=== PATIENT | male | born 1945 | race Caucasian/White ===

== ENCOUNTER 2016-08-23 22:07 | Observation (INO) | payer MEDICARE ==
[2016-08-23] MEDS ORDERED: SODIUM CHLORIDE 0.9% 1,000 ML IV STA (22:18)
[2016-08-23] MEDS ORDERED: ONDANSETRON 4 MG/2 ML VIAL IVP STA (22:18)
[2016-08-23] MEDS ORDERED: PANTOPRAZOLE 40 MG/10 ML VIAL IVP STA (22:18)
[2016-08-23] MEDS ORDERED: SODIUM CHLORIDE 0.9% 500 ML IV STA (22:18)
[2016-08-23 22:32] LABS: Basophils # (A) 0.1 k/uL (0-0.2); Basophils % (A) 1 %; CH 27.6; CHCM 33.9; Eosinophils # (A) 0.5 k/uL (0-0.7); Eosinophils % (A) 6 %; HCT 40.4 % (39.0-53.0); HDW 2.82; HGB 13.9 gm/dL (13.0-17.5); Luc # (Auto) 0.11; Luc % (Auto) 2; Lymphocytes % (A) 28 %; MCHC 34.4 g/dL (31.0-37.0); MCV 81.6 fL (80.0-100.0); Monocytes # (A) 0.4 k/uL (0-1.0); Monocytes % (A) 5 %; Neutrophils # (A) 4.1 k/uL (1.3-7.7); Neutrophils % (A) 58 %; RBC 4.95 m/uL (4.30-5.90); RDW 13.8 % (11.5-15.5); WBC 7.2 k/uL (3.8-10.6); WBC (Perox) 6.81
--- NOTE | 2016-08-23 22:34 | ED ---
General Adult HPI - General Chief complaint: GI Bleed Stated complaint: GI Bleed Time Seen by Provider: 08/23/16 22:15 Source: patient, family, RN notes reviewed, old records reviewed Mode of arrival: ambulatory - History of Present Illness Initial comments: This is a 71-year-old male to the ER for evaluation. Patient does present here for evaluation of GI bleeding, bright red blood. Blood in his stool for 2 days. This is of history of hemorrhoids does have pain in the back of his anus, is having sitting in a few bleeding related to his blood and no stool. No abdominal pain we does have history of diverticulosis, diverticulitis. No recent colonoscopy. Patient is not on blood thinners. - Related Data Home Medications Medication Instructions Recorded Confirmed Escitalopram [Lexapro] 10 mg PO DAILY 03/08/14 08/23/16 Omeprazole [Omeprazole] 20 mg PO DAILY 03/08/14 08/23/16 Ibuprofen [Advil] 400 mg PO Q8HR PRN 06/20/15 08/23/16 Pravastatin Sodium [Pravachol] 40 mg PO DAILY 06/20/15 08/23/16 Meclizine [Antivert] 12.5 mg PO DAILY 08/23/16 08/23/16 Allergies Allergy/AdvReac Type Severity Reaction Status Date / Time atorvastatin calcium Allergy PAIN IN Verified 08/23/16 22:31 [From Lipitor] MUSCLES cyclobenzaprine HCl Allergy "BLISTERS" Verified 08/23/16 22:31 [From Flexeril] Review of Systems ROS Statement: Those systems with pertinent positive or pertinent negative responses have been documented in the HPI. ROS Other: All systems not noted in ROS Statement are negative. 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 History of Any Multi-Drug Resistant Organisms: None Reported Past Surgical History: Appendectomy, Back Surgery, Cardiac Ablation, Cholecystectomy, Heart Catheterization, Hernia Repair, Joint Replacement, Orthopedic Surgery Additional Past Surgical History / Comment(s): LEFT LEG, SCREW REMOVAL-LEFT LEG , LEFT SHOULDER, CATARACTS -BOTH EYES, rt knee replaced Past Anesthesia/Blood Transfusion Reactions: Previous Problems w/ Anesthesia Additional Past Anesthesia/Blood Transfusion Reaction / Comment(s): STATES " I HAD SEVERE PERSONALITY CHANGES WITH THE PAST 2 SURGERIES, I WAS NOT NICE TO MY AT ALL" Past Psychological History: No Psychological Hx Reported Smoking Status: Former smoker Past Alcohol Use History: None Reported Past Drug Use History: None Reported - Past Family History Mother Family Medical History: No Reported History General Exam General appearance: alert, in no apparent distress Head exam: Present: atraumatic, normocephalic, normal inspection Eye exam: Present: normal appearance, PERRL, EOMI. Absent: scleral icterus, conjunctival injection, periorbital swelling ENT exam: Present: normal exam, mucous membranes moist Neck exam: Present: normal inspection. Absent: tenderness, meningismus, lymphadenopathy Respiratory exam: Present: normal lung sounds bilaterally. Absent: respiratory distress, wheezes, rales, rhonchi, stridor Cardiovascular Exam: Present: regular rate, normal rhythm, normal heart sounds. Absent: systolic murmur, diastolic murmur, rubs, gallop, clicks GI/Abdominal exam: Present: soft, normal bowel sounds. Absent: distended, tenderness, guarding, rebound, rigid Extremities exam: Present: normal inspection, full ROM, normal capillary refill. Absent: tenderness, pedal edema, joint swelling, calf tenderness Back exam: Present: normal inspection Neurological exam: Present: alert, oriented X3, CN II-XII intact Psychiatric exam: Present: normal affect, normal mood Skin exam: Present: warm, dry, intact, normal color. Absent: rash Course Vital Signs 08/23/16 22:14 Temperature 98.0 F Pulse Rate 66 Respiratory 18 Rate O2 Sat by Pulse 100 Oximetry - Reevaluation(s) Reevaluation #1: 08/23/16 23:33 Patient has no active bleeding here in the ER, no lightheadedness dizziness or weakness Medical Decision Making - Medical Decision Making 71 male to the ER for evaluation. Patient has a for evaluation J bleed prior of blood per rectum. Patient does follow with , patient with no active bleeding here in the emergency room, difficult digital exam is negative, no active hemorrhoids, hemoglobin is stable, patient will be admitted for observation - Lab Data Result diagrams: 08/23/16 22:15 08/23/16 22:15 Lab Results 08/23/16 08/23/16 08/23/16 Range/Units 22:15 22:15 22:15 WBC 7.2 (3.8-10.6) k/uL RBC 4.95 (4.30-5.90) m/uL Hgb 13.9 (13.0-17.5) gm/dL Hct 40.4 (39.0-53.0) % MCV 81.6 (80.0-100.0) fL MCH 28.0 (25.0-35.0) pg MCHC 34.4 (31.0-37.0) g/dL RDW 13.8 (11.5-15.5) % Plt Count 215 (150-450) k/uL Neutrophils % 58 % Lymphocytes % 28 % Monocytes % 5 % Eosinophils % 6 % Basophils % 1 % Neutrophils # 4.1 (1.3-7.7) k/uL Lymphocytes # 2.0 (1.0-4.8) k/uL Monocytes # 0.4 (0-1.0) k/uL Eosinophils # 0.5 (0-0.7) k/uL Basophils # 0.1 (0-0.2) k/uL PT (9.0-12.0) sec INR (<1.1) APTT (22.0-30.0) sec Sodium 141 (137-145) mmol/L Potassium 4.4 (3.5-5.1) mmol/L Chloride 104 (98-107) mmol/L Carbon Dioxide 24 (22-30) mmol/L Anion Gap 13 mmol/L BUN 16 (9-20) mg/dL Creatinine 1.00 (0.66-1.25) mg/dL Est GFR (MDRD) Af Amer >60 (>60 ml/min/1.73 sqM) Est GFR (MDRD) Non-Af >60 (>60 ml/min/1.73 sqM) Glucose 96 (74-99) mg/dL Calcium 9.4 (8.4-10.2) mg/dL Magnesium 1.9 (1.6-2.3) mg/dL Total Bilirubin 0.4 (0.2-1.3) mg/dL AST 24 (17-59) U/L ALT 28 (21-72) U/L Alkaline Phosphatase 87 (38-126) U/L Total Creatine Kinase 93 (55-170) U/L CK-MB (CK-2) 1.4 (0.0-2.4) ng/mL CK-MB (CK-2) Rel Index 1.5 Troponin I <0.012 (0.000-0.034) ng/mL Total Protein 7.0 (6.3-8.2) g/dL Albumin 4.1 (3.5-5.0) g/dL Lipase 67 (23-300) U/L Blood Type Blood Type Recheck Antibody Screen Spec Expiration Date 08/23/16 08/23/16 Range/Units 22:15 22:15 WBC (3.8-10.6) k/uL RBC (4.30-5.90) m/uL Hgb (13.0-17.5) gm/dL Hct (39.0-53.0) % MCV (80.0-100.0) fL MCH (25.0-35.0) pg MCHC (31.0-37.0) g/dL RDW (11.5-15.5) % Plt Count (150-450) k/uL Neutrophils % % Lymphocytes % % Monocytes % % Eosinophils % % Basophils % % Neutrophils # (1.3-7.7) k/uL Lymphocytes # (1.0-4.8) k/uL Monocytes # (0-1.0) k/uL Eosinophils # (0-0.7) k/uL Basophils # (0-0.2) k/uL PT 10.8 (9.0-12.0) sec INR 1.1 (<1.1) APTT 23.3 (22.0-30.0) sec Sodium (137-145) mmol/L Potassium (3.5-5.1) mmol/L Chloride (98-107) mmol/L Carbon Dioxide (22-30) mmol/L Anion Gap mmol/L BUN (9-20) mg/dL Creatinine (0.66-1.25) mg/dL Est GFR (MDRD) Af Amer (>60 ml/min/1.73 sqM) Est GFR (MDRD) Non-Af (>60 ml/min/1.73 sqM) Glucose (74-99) mg/dL Calcium (8.4-10.2) mg/dL Magnesium (1.6-2.3) mg/dL Total Bilirubin (0.2-1.3) mg/dL AST (17-59) U/L ALT (21-72) U/L Alkaline Phosphatase (38-126) U/L Total Creatine Kinase (55-170) U/L CK-MB (CK-2) (0.0-2.4) ng/mL CK-MB (CK-2) Rel Index Troponin I (0.000-0.034) ng/mL Total Protein (6.3-8.2) g/dL Albumin (3.5-5.0) g/dL Lipase (23-300) U/L Blood Type A Positive Blood Type Recheck A Pos Antibody Screen NEGATIVE Spec Expiration Date 08/26/2016 - 2319 Disposition Clinical Impression: Gastrointestinal hemorrhage Disposition: ADMITTED IP TO THIS HOSP Condition: Fair Referrals: Lusi Gill MD [Primary Care Provider] - 1-2 days
[2016-08-23 22:41] LABS: ALT 28 U/L (21-72); AST 24 U/L (17-59); Alkaline Phosphatase 87 U/L (38-126); Anion Gap 13 mmol/L; Blood Urea Nitrogen 16 mg/dL (9-20); Calcium 9.4 mg/dL (8.4-10.2); Carbon Dioxide 24 mmol/L (22-30); Chloride 104 mmol/L (98-107); Glucose 96 mg/dL (74-99); INR 1.1 (<1.1); Magnesium 1.9 mg/dL (1.6-2.3); Non-African American GFR(MDRD) >60 (>60 ml/min/1.73 sqM); Partial Thromboplastin Time 23.3 sec (22.0-30.0); Potassium 4.4 mmol/L (3.5-5.1); Prothrombin Time 10.8 sec (9.0-12.0); Sodium 141 mmol/L (137-145); Total Bilirubin 0.4 mg/dL (0.2-1.3)
[2016-08-23 22:54] LABS: Creatine Kinase 93 U/L (55-170)
[2016-08-23 23:07] LABS: Creatine Kinase MB 1.4 ng/mL (0.0-2.4); Troponin I <0.012 ng/mL (0.000-0.034)
[2016-08-23] MEDS ORDERED: SODIUM CHLORIDE 0.9% 1,000 ML IV ONE (23:30)
[2016-08-23] MEDS ORDERED: ONDANSETRON 4 MG/2 ML VIAL IVP PRN (23:30)
[2016-08-24 00:46] VITALS: BMI 33.6
[2016-08-24 08:45] VITALS: RESP 16
[2016-08-24] MEDS ORDERED: PANTOPRAZOLE 40 MG/10 ML VIAL IVP SCH (09:00)
--- NOTE | 2016-08-24 11:29 | P.GSCN ---
History of Present Illness Consult date: 08/24/16 Reason for Consult: GI bleeding History of present illness: Patient came to the hospital with complaints of bright red blood per rectum. He had several episodes prior to admission. None since yesterday evening. Hemoglobin on arrival was stable and no repeat CBC is available. The patient states he has had problems like this in the past and he believes it was from diverticulosis at that time. Dr. Jackson has always been his surgeon of choice. Last colonoscopy he believes was 5 years ago. Denies melena. No nausea or vomiting. He feels well at this time. No syncopal events. He is currently nothing by mouth with no fluids hanging. 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 History of Any Multi-Drug Resistant Organisms: None Reported Past Surgical History: Appendectomy, Back Surgery, Cardiac Ablation, Cholecystectomy, Heart Catheterization, Hernia Repair, Joint Replacement, Orthopedic Surgery Additional Past Surgical History / Comment(s): LEFT LEG, SCREW REMOVAL-LEFT LEG , LEFT SHOULDER, CATARACTS -BOTH EYES, rt knee replaced, fibula fracture Past Anesthesia/Blood Transfusion Reactions: Previous Problems w/ Anesthesia Additional Past Anesthesia/Blood Transfusion Reaction / Comm: STATES " I HAD SEVERE PERSONALITY CHANGES WITH THE PAST 2 SURGERIES, I WAS NOT NICE TO MY AT ALL" Past Psychological History: No Psychological Hx Reported Smoking Status: Former smoker Past Alcohol Use History: Abuse Additional Past Alcohol Use History / Comment(s): 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 Past Drug Use History: None Reported - Past Family History Mother Family Medical History: Myocardial Infarction ([place]) Father Additional Family Medical History / Comment(s): alcoholism, due to stomach issues. Medications and Allergies Home Medications Medication Instructions Recorded Confirmed Type Escitalopram [Lexapro] 10 mg PO DAILY 03/08/14 08/23/16 History Omeprazole [Omeprazole] 20 mg PO DAILY 03/08/14 08/23/16 History Ibuprofen [Advil] 400 mg PO Q8HR PRN 06/20/15 08/23/16 History Pravastatin Sodium [Pravachol] 40 mg PO DAILY 06/20/15 08/23/16 History Meclizine [Antivert] 12.5 mg PO DAILY 08/23/16 08/23/16 History Allergies Allergy/AdvReac Type Severity Reaction Status Date / Time atorvastatin calcium Allergy PAIN IN Verified 08/23/16 22:31 [From Lipitor] MUSCLES cyclobenzaprine HCl Allergy "BLISTERS" Verified 08/23/16 22:31 [From Flexeril] Surgical - Exam Vital Signs Temp Pulse Resp Pulse Ox 98.0 F 66 18 100 08/23/16 22:14 08/23/16 22:14 08/23/16 22:14 08/23/16 22:14 Physical exam: General: Well-developed, well-nourished HEENT: Normocephalic, sclerae nonicteric Abdomen: Nontender, nondistended Extremities: No edema Neuro: Alert and oriented Results - Labs 08/23/16 22:15 08/23/16 22:15 Diabetes panel 08/23/16 Range/Units 22:15 Sodium 141 (137-145) mmol/L Potassium 4.4 (3.5-5.1) mmol/L Chloride 104 (98-107) mmol/L Carbon Dioxide 24 (22-30) mmol/L BUN 16 (9-20) mg/dL Creatinine 1.00 (0.66-1.25) mg/dL Glucose 96 (74-99) mg/dL Calcium 9.4 (8.4-10.2) mg/dL AST 24 (17-59) U/L ALT 28 (21-72) U/L Alkaline Phosphatase 87 (38-126) U/L Total Protein 7.0 (6.3-8.2) g/dL Albumin 4.1 (3.5-5.0) g/dL Calcium panel 08/23/16 Range/Units 22:15 Calcium 9.4 (8.4-10.2) mg/dL Albumin 4.1 (3.5-5.0) g/dL Pituitary panel 08/23/16 Range/Units 22:15 Sodium 141 (137-145) mmol/L Potassium 4.4 (3.5-5.1) mmol/L Chloride 104 (98-107) mmol/L Carbon Dioxide 24 (22-30) mmol/L BUN 16 (9-20) mg/dL Creatinine 1.00 (0.66-1.25) mg/dL Glucose 96 (74-99) mg/dL Calcium 9.4 (8.4-10.2) mg/dL Adrenal panel 08/23/16 Range/Units 22:15 Sodium 141 (137-145) mmol/L Potassium 4.4 (3.5-5.1) mmol/L Chloride 104 (98-107) mmol/L Carbon Dioxide 24 (22-30) mmol/L BUN 16 (9-20) mg/dL Creatinine 1.00 (0.66-1.25) mg/dL Glucose 96 (74-99) mg/dL Calcium 9.4 (8.4-10.2) mg/dL Total Bilirubin 0.4 (0.2-1.3) mg/dL AST 24 (17-59) U/L ALT 28 (21-72) U/L Alkaline Phosphatase 87 (38-126) U/L Total Protein 7.0 (6.3-8.2) g/dL Albumin 4.1 (3.5-5.0) g/dL Assessment and Plan (1) Gastrointestinal hemorrhage Narrative/Plan: Patient discussed the options of either inpatient versus outpatient colonoscopy. Upper endoscopy is also consideration. We'll try to review this with his primary service. Resume IV fluids for now. Status: Acute
[2016-08-24 12:21] LABS: Basophils % (A) 1 %; CH 27.1; Eosinophils # (A) 0.3 k/uL (0-0.7); Eosinophils % (A) 8 %; HCT 39.3 % (39.0-53.0); HGB 12.9 gm/dL (13.0-17.5); Luc # (Auto) 0.09; Luc % (Auto) 2; Lymphocytes # (A) 1.2 k/uL (1.0-4.8); Lymphocytes % (A) 29 %; MCH 27.9 pg (25.0-35.0); MCHC 32.9 g/dL (31.0-37.0); MCV 84.8 fL (80.0-100.0); Mean Platelet Volume 8.2; Monocytes # (A) 0.2 k/uL (0-1.0); Monocytes % (A) 5 %; Neutrophils # (A) 2.2 k/uL (1.3-7.7); Neutrophils % (A) 55 %; RBC 4.64 m/uL (4.30-5.90); RDW 13.5 % (11.5-15.5); WBC 4.1 k/uL (3.8-10.6); WBC (Perox) 4.08
[2016-08-24] MEDS: SODIUM CHLORIDE 0.9% 1,000 ML IV SCH (12:37)
[2016-08-24] MEDS ORDERED: IBUPROFEN 400 MG TAB PO PRN (14:57)
[2016-08-24] MEDS ORDERED: PEG 3350-NA SULF,BICARB,CL/KCL 4,000 ML BOTTLE PO ONE (15:10)
[2016-08-24] MEDS: PRAVASTATIN SODIUM 40 MG TAB PO SCH (15:45)
[2016-08-24] MEDS: PANTOPRAZOLE 40 MG TABLET PO SCH (15:45)
[2016-08-24] MEDS: ESCITALOPRAM 10 MG TAB PO SCH (15:45)
[2016-08-24] MEDS: MECLIZINE 12.5 MG TAB PO SCH (15:46)
--- NOTE | 2016-08-24 17:18 | P.HPIM ---
History of Present Illness H&P Date: 08/24/16 Chief Complaint: bleeding per rectum This is a 71-year-old male being seen, examined and evaluated. We are covering for Dr. Gill over the weekend who will return on Friday. Patient presented to ER for evaluation of GI bleeding, bright red blood in his stool for several days. This is of history of hemorrhoids does have pain in the back of his anus. No abdominal pain, he does have history of diverticulosis, diverticulitis. No recent colonoscopy. Patient is not on blood thinners. No further bleeding since yesterday evening. Hemoglobin on arrival was stable. The patient states he has had problems like this in the past and he believes it was from diverticulosis at that time. He is currently nothing by mouth. Upon examination patient is resting up in bed on room air. Denies any pain, lightheadedness or dizziness. no nausea/ vomiting or diarrhea. No pain or other complaints at this time. Review of Systems 14 point ROS completed and negative unless noted above in the HPI Past Medical History Past Medical History: CVA/TIA, Eye Disorder, GERD/Reflux, Hearing Disorder / Deafness, Hyperlipidemia Additional Past Medical History / Comment(s): PT STATES HAS DOUBLE VISION WITHOUT GLASSES ON-POST TIA History of Any Multi-Drug Resistant Organisms: None Reported Past Surgical History: Appendectomy, Back Surgery, Cardiac Ablation, Cholecystectomy, Heart Catheterization, Hernia Repair, Joint Replacement, Orthopedic Surgery Additional Past Surgical History / Comment(s): LEFT LEG, SCREW REMOVAL-LEFT LEG , LEFT SHOULDER, CATARACTS -BOTH EYES, rt knee replaced, fibula fracture Past Anesthesia/Blood Transfusion Reactions: Previous Problems w/ Anesthesia Additional Past Anesthesia/Blood Transfusion Reaction / Comment(s): STATES " I HAD SEVERE PERSONALITY CHANGES WITH THE PAST 2 SURGERIES, I WAS NOT NICE TO MY AT ALL" Past Psychological History: No Psychological Hx Reported Smoking Status: Former smoker Past Alcohol Use History: Abuse Additional Past Alcohol Use History / Comment(s): 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 Past Drug Use History: None Reported - Past Family History Mother Family Medical History: Myocardial Infarction ([place]) Father Additional Family Medical History / Comment(s): alcoholism, due to stomach issues. Medications and Allergies Home Medications Medication Instructions Recorded Confirmed Type Escitalopram [Lexapro] 10 mg PO DAILY 03/08/14 08/23/16 History Omeprazole [Omeprazole] 20 mg PO DAILY 03/08/14 08/23/16 History Ibuprofen [Advil] 400 mg PO Q8HR PRN 06/20/15 08/23/16 History Pravastatin Sodium [Pravachol] 40 mg PO DAILY 06/20/15 08/23/16 History Meclizine [Antivert] 12.5 mg PO DAILY 08/23/16 08/23/16 History Allergies Allergy/AdvReac Type Severity Reaction Status Date / Time atorvastatin calcium Allergy PAIN IN Verified 08/23/16 22:31 [From Lipitor] MUSCLES cyclobenzaprine HCl Allergy "BLISTERS" Verified 08/23/16 22:31 [From Flexeril] Physical Exam Vitals: Vital Signs Temp Pulse Pulse Resp BP BP Pulse Ox 08/24/16 14:55 62 16 08/24/16 14:48 97.5 F L 62 16 147/73 98 08/24/16 08:00 57 L 16 08/24/16 07:00 97.5 F L 57 L 16 133/70 96 08/24/16 01:09 97.7 F 59 L 17 164/70 96 08/23/16 23:43 60 16 157/66 08/23/16 22:20 56 L 16 158/67 98 08/23/16 22:14 98.0 F 66 18 100 Intake and Output 08/24/16 08/24/16 08/24/16 06:59 14:59 22:59 Intake Total 600 1125 Balance 600 1125 Intake: Intake, IV Titration 600 625 Amount Sodium Chloride 0.9% 1, 600 000 ml @ 100 mls/hr IV . Q10H ONE Rx#:[id number] Sodium Chloride 0.9% 1, 625 000 ml @ 100 mls/hr IV . Q10H ALMA Rx#:[id number] Oral 500 Other: Voiding Method Toilet Toilet Urinal Urinal # Voids 300 3 Weight 112.491 kg 112.491 kg Patient Weight 08/25/16 06:59 Weight 112.491 kg GENERAL EXAM: Alert, active, comfortable in no apparent distress. HEAD: Normocephalic. EYES: Normal reaction of pupils, equal size. NOSE: Clear with pink turbinates. THROAT: No erythema or exudates. NECK: No masses, no JVD. CHEST: No chest wall deformity. LUNGS: Equal air entry with no crackles, wheeze, rhonchi or dullness. CVS: S1 and S2 normal with no audible mumurs, regular rhythm. ABDOMEN: No hepatosplenomegaly, normal bowel sounds, no guarding or rigidity. EXTREMITIES: No edema noted, pedal pulses palpable. SKIN: No rashes CENTRAL NERVOUS SYSTEM: No focal deficits, tone is normal in all 4 extremities. Results CBC & Chem 7: 08/24/16 12:07 08/23/16 22:15 Labs: Abnormal Lab Results - Last 24 Hours (Table) 08/24/16 Range/Units 12:07 Hgb 12.9 L (13.0-17.5) gm/dL Thrombosis Risk Factor Assmnt - DVT/VTE Prophylaxis DVT/VTE Prophylaxis: Mechanical Prophylaxis ordered - Choose All That Apply Any of the Below Risk Factors Present?: Yes Each Factor Represents 1 point: Obesity (BMI >25) Other Risk Factors: Yes Each Risk Factor Represents 2 Points: Age 61-74 years Thrombosis Risk Factor Assessment Total Risk Factor Score: 3 Thrombosis Risk Factor Assessment Level: Moderate Risk Assessment and Plan Plan: Assessment Acute GI Bleed Hx of CVA/TIA Depression Hyperlipidemia Plan Medications have been reviewed and will be continued as ordered. Continue to monitor hemoglobin and any further bleeding. Surgical services on consult. Patient may be considered to have colonoscopy or endoscopy in the outpatient setting if no further bleeding and hemodynamically stable, otherwise will be inpatient. Continue with pulmonary hygiene, coughing and deep breathing exercises, and supportive care. GI and DVT prophylaxis. We will continue to monitor labs/results and adjust treatment as necessary. Further recommendations pending. We are covering for Dr. Gill over the weekend who will return on Friday. I performed an examination of the patient and discussed their management with the nurse practitioner. I have reviewed the nurse practitioner's note and agree with the documented findings and plan of care.
[2016-08-25] MEDS: SODIUM CHLORIDE 0.9% 1,000 ML IV SCH ×2 (07:24→07:25)
[2016-08-25 07:33] LABS: Basophils % (A) 1 %; CH 27.2; CHCM 32.5; Eosinophils # (A) 0.4 k/uL (0-0.7); Eosinophils % (A) 9 %; HCT 40.5 % (39.0-53.0); HDW 2.76; HGB 13.3 gm/dL (13.0-17.5); Luc # (Auto) 0.12; Luc % (Auto) 3; Lymphocytes # (A) 1.3 k/uL (1.0-4.8); Lymphocytes % (A) 28 %; MCH 27.5 pg (25.0-35.0); MCHC 32.8 g/dL (31.0-37.0); MCV 83.9 fL (80.0-100.0); Mean Platelet Volume 7.5; Monocytes # (A) 0.3 k/uL (0-1.0); Monocytes % (A) 6 %; Neutrophils # (A) 2.6 k/uL (1.3-7.7); Neutrophils % (A) 55 %; RBC 4.83 m/uL (4.30-5.90); RDW 13.4 % (11.5-15.5); WBC 4.7 k/uL (3.8-10.6); WBC (Perox) 4.92
[2016-08-25 07:41] VITALS: BP 168/76; PULSE 65; TEMP 98
[2016-08-25 07:55] LABS: ALT 22 U/L (21-72); AST 20 U/L (17-59); Alkaline Phosphatase 80 U/L (38-126); Anion Gap 7 mmol/L; Blood Urea Nitrogen 9 mg/dL (9-20); Calcium 9.1 mg/dL (8.4-10.2); Carbon Dioxide 28 mmol/L (22-30); Chloride 108 mmol/L (98-107); Glucose 91 mg/dL (74-99); Non-African American GFR(MDRD) >60 (>60 ml/min/1.73 sqM); Potassium 4.5 mmol/L (3.5-5.1); Sodium 143 mmol/L (137-145); Total Bilirubin 0.8 mg/dL (0.2-1.3); Total Protein 6.5 g/dL (6.3-8.2)
[2016-08-25] MEDS ORDERED: IV FLUID CONTINUATION 1,000 ML IV ONE (08:58)
[2016-08-25] MEDS ORDERED: PROPOFOL 10 MG/ML 20 ML VIAL IV ONE (09:04)
--- NOTE | 2016-08-25 09:30 | P.PCN ---
Date of Procedure: 08/25/16 Preoperative Diagnosis: Postoperative Diagnosis: Procedure(s) Performed: PREOPERATIVE DIAGNOSIS: GI bleed POSTOPERATIVE DIAGNOSIS: Stratus, diverticulosis, hemorrhoids PROCEDURE: 1. EGD with biopsy 2. Colonoscopy ANESTHESIA: MAC SURGEON: Abdelrahman Lyle M.D. SPECIMENS: Antrum ENDOSCOPIC PROCEDURE: The patient was on the endoscopy table in the left decubitus position. The Olympus gastroscope was inserted into the oropharynx and passed under direct visualization to the region of the third portion of the duodenum. From that point the scope was slowly withdrawn inspecting all surfaces carefully. There were no neoplastic inflammatory or polypoid lesions throughout the duodenum. The pylorus was widely patent. The stomach was carefully inspected. There was mild gastritis present. A biopsy of the antrum took place to rule out H. pylori. Retroflexion revealed a normal hiatus. The esophagus was then carefully examined. There were no neoplastic inflammatory or polypoid lesions throughout the visualized esophagus. The patient was kept on the endoscopy table in the left decubitus position. The Olympus colonoscope was inserted into the anus and passed under direct visualization to the base of the cecum. The appendiceal orifice was visualized. From that point the scope was slowly withdrawn inspecting all surfaces carefully. There were no neoplastic inflammatory or polypoid lesions throughout the cecum, ascending, transverse, descending, sigmoid and rectum. There was mild diverticulosis noted primarily in the left colon. Digital rectal examination revealed prominent internal and external hemorrhoids. No source of definite recent bleed noted. The patient was taken to the recovery room in stable condition per anesthesia guidelines. RECOMMENDATIONS: Increase fiber. Resume diet. Stable for discharge from my standpoint. Implants: Indications for Procedure: Operative Findings: Description of Procedure:
[2016-08-25] MEDS: ESCITALOPRAM 10 MG TAB PO SCH (10:09)
[2016-08-25] MEDS: MECLIZINE 12.5 MG TAB PO SCH (10:09)
[2016-08-25] MEDS: PRAVASTATIN SODIUM 40 MG TAB PO SCH (10:09)
[2016-08-25] MEDS: PANTOPRAZOLE 40 MG TABLET PO SCH (10:09)
--- NOTE | 2016-08-25 10:23 | P.DS ---
Providers Date of admission: 08/23/16 23:32 Expected date of discharge: 08/25/16 Attending physician: Luis Gill Consults: 08/23/16 23:25 Consult Physician Routine Consulting Provider: Shelbi Jackson Consult Reason/Comments: know Do you want consulting provider notified?: Yes [facility] Course: 08/24/16-This is a 71-year-old male being seen, examined and evaluated. We are covering for Dr. Gill over the weekend who will return on Friday. Patient presented to ER for evaluation of GI bleeding, bright red blood in his stool for several days. This is of history of hemorrhoids does have pain in the back of his anus. No abdominal pain, he does have history of diverticulosis, diverticulitis. No recent colonoscopy. Patient is not on blood thinners. No further bleeding since yesterday evening. Hemoglobin on arrival was stable. The patient states he has had problems like this in the past and he believes it was from diverticulosis at that time. He is currently nothing by mouth. Upon examination patient is resting up in bed on room air. Denies any pain, lightheadedness or dizziness. no nausea/ vomiting or diarrhea. No pain or other complaints at this time. 08/25/16- patient underwent EGD and colonoscopy this morning with Dr. Lyle. Please see procedure notes. Patient has continued to be stable is tolerating diet. Has been cleared from surgical services for discharge. No further bleeding. Hemoglobin stable. Pertinent Studies: EGD and colonoscopy with possible biopsies Procedures: EGD and colonoscopy with possible biopsies Patient Condition at Discharge: Fair Plan - Discharge Summary New Discharge Prescriptions: No Action Omeprazole [Omeprazole] 20 mg PO DAILY Escitalopram [Lexapro] 10 mg PO DAILY Pravastatin Sodium [Pravachol] 40 mg PO DAILY Ibuprofen [Advil] 400 mg PO Q8HR PRN PRN Reason: Pain Meclizine [Antivert] 12.5 mg PO DAILY Discharge Medication List Escitalopram [Lexapro] 10 mg PO DAILY 03/08/14 [History] Omeprazole [Omeprazole] 20 mg PO DAILY 03/08/14 [History] Ibuprofen [Advil] 400 mg PO Q8HR PRN 06/20/15 [History] Pravastatin Sodium [Pravachol] 40 mg PO DAILY 06/20/15 [History] Meclizine [Antivert] 12.5 mg PO DAILY 08/23/16 [History] Follow up Appointment(s)/Referral(s): Luis Gill MD [Primary Care Provider] - 1-2 days Patient Instructions/Handouts: Gastrointestinal Bleeding (DC) Activity/Diet/Wound Care/Special Instructions: Activity as tolerated Regular diet as tolerated Discharge Disposition: HOME SELF-CARE Pending Studies Pending Results: EGD/colonoscopy biopsies pending patient will receive results from Dr. Lyle.
== END 2016-08-25 14:32 | disposition home or self-care (01) ==
LOC: EC 22:07 → 5MS5E 23:32
PROVIDERS: ADMIT Family Medicine; ATTEND Family Medicine
DX: K92.2 Gastrointestinal hemorrhage, unspecified (principal); K57.90 Diverticulosis of intestine, part unspecified, without perforation or abscess without bleeding; K29.50 Unspecified chronic gastritis without bleeding; K64.9 Unspecified hemorrhoids; K21.9 Gastro-esophageal reflux disease without esophagitis; F32.9 Major depressive disorder, single episode, unspecified; E78.5 Hyperlipidemia, unspecified; Z79.899 Other long term (current) drug therapy; Z88.8 Allergy status to other drugs, medicaments and biological substances; Z86.73 Personal history of transient ischemic attack (TIA), and cerebral infarction without residual deficits; H91.90 Unspecified hearing loss, unspecified ear; Z87.891 Personal history of nicotine dependence; Z82.49 Family history of ischemic heart disease and other diseases of the circulatory system; R42 Dizziness and giddiness
CPT/HCPCS: 96361 ×5; 96375 ×2; 45378; 96376; 96374; 99285; 36415; 86900; 86901; 88305; 80053 ×2; 82550; 82553; 83690; 83735; 84484; 85025 ×3; 85610; 85730; 86850; 88342; 43239; G0378 ×3; J2405; J2704; C9113 ×2

== ENCOUNTER → 2016-12-31 | Outpatient (CLI) | payer MEDICARE ==
--- NOTE | 2016-12-31 14:35 | CT ---
EXAMINATION TYPE: CT abdomen wo con DATE OF EXAM: 12/31/2016 HISTORY: LLQ abdominal pain CT DLP: 862.30 mGycm. Automated Exposure Control for Dose Reduction was Utilized. TECHNIQUE: CT scan of the abdomen is performed without oral or IV contrast. COMPARISON: Complete abdominal ultrasound December 09, 2016 FINDINGS: Within the limitations of a non-contrast study, the following observations are made. LUNG BASES: There is some left basilar linear scarring and/or atelectasis. LIVER/GB: Cholecystectomy clips are seen. PANCREAS: There is some mild fat replaced atrophy of pancreas at head level.. SPLEEN: No significant abnormality is seen. ADRENALS: No significant abnormality is seen. KIDNEYS: Some cortical thinning in both kidneys is redemonstrated. The 1 cm lower pole cyst on ultras ound is not clearly seen on CT. BOWEL: There is no suspicious small or large bowel dilatation. Cecum is slightly wondering into the r ight midabdomen above level of umbilicus. LYMPH NODES: No greater than 1cm abdominal pelvic lymph nodes are appreciated. OSSEOUS STRUCTURES: Fairly moderate multilevel spurring in the visualized thoracolumbar spine is pres ent. OTHER: There is mild to moderate calcified atherosclerotic change of aorta. Left lower quadrant anterior abdominal wall shows no worrisome solid or cystic mass or fluid collecti on on images saved. Possible lipoma would be isodense to adjacent subcutaneous fat. No BB is placed o n current study to aldair area of concern. IMPRESSION: No suspicious finding is seen to account for patient's symptoms. No encapsulated lesion o r lipoma is clearly identified to correlate with recent ultrasound.
== END | disposition home or self-care (01) ==
LOC: RADCTMAIN 13:35
PROVIDERS: ATTEND Family Medicine
DX: R10.32 Left lower quadrant pain (principal)
CPT/HCPCS: 74150

== ENCOUNTER → 2017-01-07 | Outpatient (CLI) | payer MEDICARE ==
--- NOTE | 2017-01-07 14:04 | XR ---
EXAMINATION TYPE: XR chest 2V DATE OF EXAM: 01/07/2017 COMPARISON: 01/09/2015 HISTORY: 71-year-old male with cough and chest cold TECHNIQUE: Frontal and lateral views FINDINGS: Heart is normal size. Mild elongation of the thoracic aorta. Some opacity at the cardiac apex seems t o represent a epicardial fat-pad. No consolidation or pleural effusion. Surgical cris at the right shoulder. Reverse left total shoulder arthroplasty partially visualized. Bridging anterior plate spo ndylosis suggestive of DISH. IMPRESSION: No acute cardiopulmonary process.
== END | disposition home or self-care (01) ==
LOC: RADXRMAIN 12:22
PROVIDERS: ATTEND Family Medicine
DX: R05 Cough (principal)
CPT/HCPCS: 71020

== ENCOUNTER → 2017-03-11 | Outpatient (CLI) | payer MEDICARE | END | disposition home or self-care (01) | LOC: LABWHC1 10:13 | PROVIDERS: ATTEND Family Medicine | DX: F02.80 Dementia in other diseases classified elsewhere, unspecified severity, without behavioral disturbance, psychotic disturbance, mood disturbance, and anxiety (principal); R41.3 Other amnesia | CPT/HCPCS: 36415; 82565 ==

== ENCOUNTER → 2017-03-12 | Outpatient (CLI) | payer MEDICARE ==
--- NOTE | 2017-03-12 20:54 | MR ---
EXAMINATION TYPE: MR brain wo/w con DATE OF EXAM: 03/12/2017 6:54 PM COMPARISON: October 02, 2010 HISTORY: Memory loss CONTRAST: Patient received 10 mL intravenous Gadavist gadolinium contrast. Multiplanar and multispin-echo imaging of the brain was performed . Pre and post contrast enhanced i mages are obtained. The ventricles, basal cisterns and sulci overlying the cerebral convexities are mildly enlarged. There is evidence of mild periventricular white matter ischemic demyelination. Remote deep white matter insults are also noted. No acute edema is seen on diffusion weighted imaging. There is no evidence for midline shift or mass effect. Acute intracranial hemorrhage or extra-axial collection is not evident. No enhancing lesions are seen. The paranasal sinuses and mastoid air cells are well-aerated. Mild mucoperiosteal thickening of the p aranasal sinuses. IMPRESSION: Age-related atrophic and chronic small vessel ischemic change. No acute intracranial process at this time. No enhancing lesions are seen.
== END | disposition home or self-care (01) ==
LOC: RADMRIMAIN 17:40
PROVIDERS: ATTEND Family Medicine
DX: G31.1 Senile degeneration of brain, not elsewhere classified (principal); I67.82 Cerebral ischemia
CPT/HCPCS: 70553; A9577

== ENCOUNTER → 2017-05-19 | Outpatient (CLI) | payer MEDICARE ==
--- NOTE | 2017-05-19 11:12 | US ---
EXAMINATION TYPE: US prostate transrectal DATE OF EXAM: 05/19/2017 COMPARISON: 12/10/2013 CLINICAL HISTORY: R97.2 Elevated PSA. This examination was performed using the transrectal probe. EXAM MEASUREMENTS: Gland Size: 4.4 x 2.7 x 5.2 Volume: 33.0 ml Predicted PSA: 4.0 Actual PSA (if available):n/a Some areas of ectasia, CZ shows enlargement indicative of BPH, No definitive lesion(s) noted. Central zone calcifications are also present. IMPRESSION: Mildly enlarged prostate gland with diffuse heterogeneity consistent with sonographic fi ndings of benign prostatic hyperplasia. No suspicious focal hypoechoic nodule.
== END | disposition home or self-care (01) ==
LOC: RADUSMAIN 08:40
PROVIDERS: ATTEND Family Medicine
DX: N40.0 Benign prostatic hyperplasia without lower urinary tract symptoms (principal)
CPT/HCPCS: 76872

== ENCOUNTER → 2018-04-24 | Outpatient (CLI) | payer MEDICARE ==
[~2018-04-24] MED LIST: REGADENOSON 0.4 MG/5 ML SYRINGE IV ONE
--- NOTE | 2018-04-24 11:55 | NM ---
"EXAMINATION TYPE: NM stress lexiscan cardiolite DATE OF EXAM: 04/24/2018 COMPARISON: NONE HISTORY: chest pain TECHNIQUE: After the intravenous administration of 10.07 mCi Tc 99m Sestamibi - Cardiolite resting S PECT images acquired 45 minutes post injection. The patient received 0.4mg Lexiscan, 26 mCi Tc 99m Sestamibi - Stress images obtained 45 minutes post injection FINDINGS: Review of stress and rest SPECT images demonstrates there is a fixed perfusion defect involving the i nferior wall the myocardium suggestive of a small area of stress-induced reversibility involving the apex of the myocardium. With an estimated left ventricular ejection fraction of 57 %. IMPRESSION: 1. Fixed area of defect involving the inferior and inferoapical myocardium with corresponding wall mo tion defect. Small area of stress-induced reversibility suspected involving the apex. A [place] level critical message alert has been initiated for Luis Gill MD via the Backplane 36 0 | Critical Results System on 04/24/2018 11:47 AM. This message alert has been sent to Luis Gill MD via the preferences provided by the clinician for the receipt of Radiology Critical Findings. [facility] ID [id number]."
--- NOTE | 2018-04-24 13:40 | EST ---
EXERCISE STRESS DATE OF SERVICE: 04/24/2018 AGE: 72 SEX: Male HT: 6' WT: 248 pounds PROTOCOL: Lexiscan Cardiolite STAGE: DURATION OF EXERCISE: HEART RATE REST: 62 BLOOD PRESSURE REST: 104/64 MAXIMUM HEART RATE ACHIEVED: 91 MAXIMUM BLOOD PRESSURE: 107/51 85% MPHR: 100% MPHR: METS: INDICATIONS: Chest pain. CLINICAL INFORMATION: STRESS DATA: Pretesting physical examination showed heart rate of 62, pressure is 104/64 mmHg. Baseline EKG showed sinus mechanism. A 0.4 mg of Lexiscan given over 15 seconds per protocol. Max heart rate was 91 beats per minute. Maximum pressure was 107/51 mmHg. Clinically the patient did not have any symptoms of chest pain or discomfort and the EKG did not show any significant ST or T-wave abnormality concerning for ischemia. CONCLUSION: 1. Nondiagnostic electrocardiogram stress testing in response to Lexiscan. 2. Please follow up on the Cardiolite portion on separate report from radiology department. MMODL / IJN: [id number] /
== END | disposition home or self-care (01) ==
LOC: RADNMMAIN 07:59
PROVIDERS: ATTEND Family Medicine
DX: R94.39 Abnormal result of other cardiovascular function study (principal); I25.10 Atherosclerotic heart disease of native coronary artery without angina pectoris
CPT/HCPCS: 93017; 78452; A9500; J2785

== ENCOUNTER 2018-05-14 15:03 | Observation (INO) | payer MEDICARE ==
[2018-05-14] MEDS ORDERED: SODIUM CHLORIDE 0.9% 500 ML 500 ML IV STA (15:48)
--- NOTE | 2018-05-14 16:01 | ED ---
General Adult HPI - General Chief complaint: Recheck/Abnormal Lab/Rx Stated complaint: Hypotensive Time Seen by Provider: 05/14/18 15:27 Source: patient, RN notes reviewed Mode of arrival: ambulatory Limitations: no limitations - History of Present Illness Initial comments: 73-year-old male with a past medical history of TIA, angina, GERD, hyperlipidemi a, hypertension presents to the emergency department for a chief complaint of hypotension. Patient had a Lexiscan stress test 20 days ago which showed a fixed area of defect involving the inferior and inferior apical myocardium with corresponding wall motion defect. Patient states he is scheduled for a heart cath tomorrow with Dr. Kessler. He states that he saw Dr. Gill today for ongoing hypotension. states hypotension worsened when standing however they are not sure of how low the blood pressure did get. They think it was over 100. He does admit to intermittent chest discomfort as well as shortness of breath that has been ongoing. Apparently Dr. Gill wanted them to come to this hospital as patient's heart cath will be here tomorrow. Patient has no other complaints at this time including abdominal pain, nausea or vomiting, headache, or visual changes. - Related Data Home Medications Medication Instructions Recorded Confirmed Escitalopram [Lexapro] 10 mg PO DAILY 03/08/14 05/14/18 Omeprazole 20 mg PO DAILY 03/08/14 05/14/18 Pravastatin Sodium [Pravachol] 40 mg PO HS 06/20/15 05/14/18 Aspirin 81 mg PO DAILY 05/11/18 05/14/18 Montelukast [Singulair] 10 mg PO DAILY 05/11/18 05/14/18 Tamsulosin [Flomax] 0.4 mg PO HS 05/11/18 05/14/18 Ibuprofen [Motrin] 400 mg PO DAILY PRN 05/14/18 05/14/18 Meclizine [Antivert] 25 mg PO BID 05/14/18 05/14/18 Allergies Allergy/AdvReac Type Severity Reaction Status Date / Time atorvastatin calcium Allergy PAIN IN Verified 05/14/18 15:08 [From Lipitor] MUSCLES cyclobenzaprine HCl Allergy "BLISTERS" Verified 05/14/18 15:08 [From Flexeril] Review of Systems ROS Statement: Those systems with pertinent positive or pertinent negative responses have been documented in the HPI. ROS Other: All systems not noted in ROS Statement are negative. Past Medical History Past Medical History: Chest Pain / Angina, CVA/TIA, Eye Disorder, GERD/Reflux, Hearing Disorder / Deafness, Hyperlipidemia, Hypertension, Osteoarthritis (OA), Prostate Disorder Additional Past Medical History / Comment(s): HAS DOUBLE VISION WITHOUT GLASSES ON-POST TIA, vertigo, SOB w/exertion, recent hospitalization @[facility] for CP, dizziness History of Any Multi-Drug Resistant Organisms: None Reported Past Surgical History: Appendectomy, Back Surgery, Cardiac Ablation, Cholecystectomy, Heart Catheterization, Hernia Repair, Joint Replacement, Orthopedic Surgery Additional Past Surgical History / Comment(s): LEFT LEG, SCREW REMOVAL-LEFT LEG, LEFT SHOULDER, CATARACTS -BOTH EYES, both knees replaced, fibula fracture, TURP, growth removed from inside right eyelid Past Anesthesia/Blood Transfusion Reactions: Previous Problems w/ Anesthesia Additional Past Anesthesia/Blood Transfusion Reaction / Comment(s): STATES " I HAD SEVERE PERSONALITY CHANGES WITH THE PAST 2 SURGERIES, I WAS NOT NICE TO MY AT ALL" Past Psychological History: Anxiety Smoking Status: Former smoker - Past Family History Mother Family Medical History: Myocardial Infarction ([place]) Father Additional Family Medical History / Comment(s): alcoholism, due to stomach issues. General Exam Limitations: no limitations General appearance: alert, in no apparent distress Head exam: Present: atraumatic, normocephalic, normal inspection Eye exam: Present: normal appearance, PERRL, EOMI. Absent: scleral icterus, conjunctival injection, periorbital swelling ENT exam: Present: normal exam, mucous membranes moist Neck exam: Present: normal inspection, full ROM. Absent: tenderness, meningismus, lymphadenopathy Respiratory exam: Present: normal lung sounds bilaterally. Absent: respiratory distress, wheezes, rales, rhonchi, stridor Cardiovascular Exam: Present: regular rate, normal rhythm, normal heart sounds. Absent: systolic murmur, diastolic murmur, rubs, gallop, clicks Neurological exam: Present: alert, oriented X3, CN II-XII intact Psychiatric exam: Present: normal affect, normal mood Skin exam: Present: warm, dry, intact, normal color. Absent: rash, diaphoretic Course Vital Signs 05/14/18 05/14/18 05/14/18 15:06 16:13 16:20 Temperature 98 F Pulse Rate 67 59 L Pulse Rate [ Sitting] Pulse Rate [ Standing] Pulse Rate [ Supine Shipper] Respiratory 20 15 Rate Blood Pressure 127/68 132/72 Blood Pressure [Sitting] Blood Pressure [Standing] Blood Pressure [Supine] O2 Sat by Pulse 96 90 L 97 Oximetry 05/14/18 05/14/18 05/14/18 16:30 16:40 16:50 Temperature Pulse Rate 56 L 67 Pulse Rate [ Sitting] Pulse Rate [ Standing] Pulse Rate [ Supine Shipper] Respiratory 18 19 Rate Blood Pressure 132/72 129/64 107/64 Blood Pressure [Sitting] Blood Pressure [Standing] Blood Pressure [Supine] O2 Sat by Pulse 95 97 Oximetry 05/14/18 05/14/18 05/14/18 17:00 17:10 17:20 Temperature Pulse Rate 55 L 59 L 57 L Pulse Rate [ 60 Sitting] Pulse Rate [ 66 Standing] Pulse Rate [ 59 L Supine Shipper] Respiratory 18 17 18 Rate Blood Pressure 107/64 123/61 123/61 Blood Pressure 124/63 [Sitting] Blood Pressure 107/64 [Standing] Blood Pressure 127/57 [Supine] O2 Sat by Pulse 97 94 L 95 Oximetry 05/14/18 05/14/18 05/14/18 17:30 17:40 17:50 Temperature Pulse Rate 58 L 56 L 55 L Pulse Rate [ Sitting] Pulse Rate [ Standing] Pulse Rate [ Supine Shipper] Respiratory 16 18 16 Rate Blood Pressure 123/61 110/58 110/58 Blood Pressure [Sitting] Blood Pressure [Standing] Blood Pressure [Supine] O2 Sat by Pulse 94 L 94 L 95 Oximetry 05/14/18 05/14/18 18:00 18:10 Temperature Pulse Rate 63 59 L Pulse Rate [ Sitting] Pulse Rate [ Standing] Pulse Rate [ Supine Shipper] Respiratory 23 17 Rate Blood Pressure 110/58 139/86 Blood Pressure [Sitting] Blood Pressure [Standing] Blood Pressure [Supine] O2 Sat by Pulse 95 96 Oximetry EKG Findings - EKG Comments: EKG Findings:: sinus bradycardia, ventricular rate 58, incomplete right bundle branch block, no significant ST elevation or depression. QRS ratio 98, QTC 408 Medical Decision Making - Medical Decision Making 73-year-old male presents for chief hypotension. Patient had stress test which was abnormal 20 days ago. He was seen by Dr. Gill today for ongoing hypotension worse with standing, likely orthostatic in nature. Patient [place] 60 miles away and has a heart cath scheduled tomorrow morning. He states that he believes Dr. Burnett wanted him to stay in the hospital in case he has any problems and is so far away tonight. CBC and CMP unremarkable. Troponin negative. No significant hypotension here in the emergency department. However patient has had issues in the past with hypotension apparently. EKG shows a sinus bradycardia without ST elevation or depression. There is an incomplete right bundle branch block however no previous EKG to compare this to. Patient denying any chest pain at this time however. Patient will be admitted to Dr. Gill and Dr. Sandhu will be consulted as he will be the one performing the heart Tomorrow according to patient. - Lab Data Result diagrams: 05/14/18 15:56 05/14/18 15:56 Lab Results 05/14/18 05/14/18 05/14/18 Range/Units 15:56 15:56 15:56 WBC 5.8 (3.8-10.6) k/uL RBC 4.84 (4.30-5.90) m/uL Hgb 14.0 (13.0-17.5) gm/dL Hct 42.1 (39.0-53.0) % MCV 86.9 (80.0-100.0) fL MCH 29.0 (25.0-35.0) pg MCHC 33.3 (31.0-37.0) g/dL RDW 13.2 (11.5-15.5) % Plt Count 192 (150-450) k/uL Neutrophils % 60 % Lymphocytes % 28 % Monocytes % 6 % Eosinophils % 4 % Basophils % 1 % Neutrophils # 3.5 (1.3-7.7) k/uL Lymphocytes # 1.6 (1.0-4.8) k/uL Monocytes # 0.4 (0-1.0) k/uL Eosinophils # 0.2 (0-0.7) k/uL Basophils # 0.0 (0-0.2) k/uL PT (9.0-12.0) sec INR (<1.2) APTT (22.0-30.0) sec Sodium 137 (137-145) mmol/L Potassium 4.2 (3.5-5.1) mmol/L Chloride 105 (98-107) mmol/L Carbon Dioxide 24 (22-30) mmol/L Anion Gap 8 mmol/L BUN 14 (9-20) mg/dL Creatinine 0.83 (0.66-1.25) mg/dL Est GFR (CKD-EPI)AfAm >90 (>60 ml/min/1.73 sqM) Est GFR (CKD-EPI)NonAf 87 (>60 ml/min/1.73 sqM) Glucose 81 (74-99) mg/dL Calcium 9.2 (8.4-10.2) mg/dL Magnesium 1.9 (1.6-2.3) mg/dL Total Bilirubin 0.7 (0.2-1.3) mg/dL AST 17 (17-59) U/L ALT 21 (21-72) U/L Alkaline Phosphatase 73 (38-126) U/L Troponin I (0.000-0.034) ng/mL NT-Pro-B Natriuret Pep 73 pg/mL Total Protein 6.2 L (6.3-8.2) g/dL Albumin 3.6 (3.5-5.0) g/dL 05/14/18 05/14/18 Range/Units 15:56 15:56 WBC (3.8-10.6) k/uL RBC (4.30-5.90) m/uL Hgb (13.0-17.5) gm/dL Hct (39.0-53.0) % MCV (80.0-100.0) fL MCH (25.0-35.0) pg MCHC (31.0-37.0) g/dL RDW (11.5-15.5) % Plt Count (150-450) k/uL Neutrophils % % Lymphocytes % % Monocytes % % Eosinophils % % Basophils % % Neutrophils # (1.3-7.7) k/uL Lymphocytes # (1.0-4.8) k/uL Monocytes # (0-1.0) k/uL Eosinophils # (0-0.7) k/uL Basophils # (0-0.2) k/uL PT 10.3 (9.0-12.0) sec INR 1.0 (<1.2) APTT 23.6 (22.0-30.0) sec Sodium (137-145) mmol/L Potassium (3.5-5.1) mmol/L Chloride (98-107) mmol/L Carbon Dioxide (22-30) mmol/L Anion Gap mmol/L BUN (9-20) mg/dL Creatinine (0.66-1.25) mg/dL Est GFR (CKD-EPI)AfAm (>60 ml/min/1.73 sqM) Est GFR (CKD-EPI)NonAf (>60 ml/min/1.73 sqM) Glucose (74-99) mg/dL Calcium (8.4-10.2) mg/dL Magnesium (1.6-2.3) mg/dL Total Bilirubin (0.2-1.3) mg/dL AST (17-59) U/L ALT (21-72) U/L Alkaline Phosphatase (38-126) U/L Troponin I <0.012 (0.000-0.034) ng/mL NT-Pro-B Natriuret Pep pg/mL Total Protein (6.3-8.2) g/dL Albumin (3.5-5.0) g/dL Disposition Clinical Impression: Hypotension Disposition: ADMITTED IP TO THIS HOSP Condition: Good Is patient prescribed a controlled substance at d/c from ED?: No Referrals: Luis Gill MD [Primary Care Provider] - 1-2 days Time of Disposition: 17:44
[2018-05-14 16:19] LABS: Basophils % (A) 1 %; Eosinophils # (A) 0.2 k/uL (0-0.7); Eosinophils % (A) 4 %; HCT 42.1 % (39.0-53.0); Lymphocytes # (A) 1.6 k/uL (1.0-4.8); Lymphocytes % (A) 28 %; MCHC 33.3 g/dL (31.0-37.0); MCV 86.9 fL (80.0-100.0); Mean Platelet Volume 7.5; Monocytes # (A) 0.4 k/uL (0-1.0); Monocytes % (A) 6 %; Neutrophils # (A) 3.5 k/uL (1.3-7.7); Neutrophils % (A) 60 %; Platelet Count 192 k/uL (150-450); RBC 4.84 m/uL (4.30-5.90); RDW 13.2 % (11.5-15.5); WBC 5.8 k/uL (3.8-10.6)
[2018-05-14 16:26] LABS: Partial Thromboplastin Time 23.6 sec (22.0-30.0); Prothrombin Time 10.3 sec (9.0-12.0)
--- NOTE | 2018-05-14 16:43 | XR ---
EXAMINATION TYPE: XR chest 2V DATE OF EXAM: 05/14/2018 COMPARISON: 01/07/2017 HISTORY: Chest pain TECHNIQUE: Frontal and lateral views of the chest are obtained. FINDINGS: Heart and mediastinum are normal. Lungs are clear of infiltrate. There is no heart failure . There are chest leads. There is left shoulder prosthesis. Bony thorax is intact. There is right deedee ulder surgery. IMPRESSION: No cardiopulmonary disease. Normal heart. There is clearing of minimal atelectasis left lung base compared to old exam.
[2018-05-14 17:00] LABS: ALT 21 U/L (21-72); AST 17 U/L (17-59); Albumin 3.6 g/dL (3.5-5.0); Alkaline Phosphatase 73 U/L (38-126); Anion Gap 8 mmol/L; Blood Urea Nitrogen 14 mg/dL (9-20); Calcium 9.2 mg/dL (8.4-10.2); Carbon Dioxide 24 mmol/L (22-30); Chloride 105 mmol/L (98-107); Glucose 81 mg/dL (74-99); Magnesium 1.9 mg/dL (1.6-2.3); Potassium 4.2 mmol/L (3.5-5.1); Sodium 137 mmol/L (137-145); Total Bilirubin 0.7 mg/dL (0.2-1.3); Total Protein 6.2 g/dL (6.3-8.2)
[2018-05-14] MEDS ORDERED: NALOXONE 0.4 MG/ML 1 ML VIAL IV PRN (17:44)
[2018-05-14] MEDS ORDERED: SODIUM CHLORIDE 0.9% 1,000 ML IV SCH (17:45)
[2018-05-15] MEDS ORDERED: LIDOCAINE 1% INJ 10MG/ML (20 ML MDV) ONE (07:16)
[2018-05-15] MEDS ORDERED: fentaNYL (PF) 50 MCG/ML 2 ML AMP ONE (07:16)
[2018-05-15] MEDS ORDERED: PANTOPRAZOLE 40 MG TABLET PO SCH (07:30)
[2018-05-15] MEDS ORDERED: ASPIRIN 81 MG ONE (07:32)
[2018-05-15] MEDS ORDERED: ASPIRIN 81 MG PO ONE (07:35)
[2018-05-15] MEDS ORDERED: MIDAZOLAM 2 MG/2 ML VIAL IVP ONE (07:49)
[2018-05-15] MEDS ORDERED: LIDOCAINE 1% INJ 10MG/ML (20 ML MDV) SQ ONE (07:50)
[2018-05-15] MEDS ORDERED: IV FLUID CONTINUATION 1,000 ML IV ONE (07:54)
[2018-05-15] MEDS ORDERED: IOPAMIDOL-370 150ML BTL INJ ONE (08:00)
[2018-05-15] MEDS ORDERED: RX INFO: IV CONTRAST WAS GIVEN 1 EACH MISC MISCELLANE PRN (08:07)
[2018-05-15 08:42] VITALS: RESP 18; TEMP 97.5
[2018-05-15 08:47] VITALS: BMI 33.2
[2018-05-15] MEDS ORDERED: MONTELUKAST 10 MG TAB PO SCH (09:00)
[2018-05-15] MEDS ORDERED: ASPIRIN 81 MG PO SCH (09:00)
[2018-05-15] MEDS ORDERED: ESCITALOPRAM 10 MG TAB PO SCH (09:00)
[2018-05-15] MEDS ORDERED: MECLIZINE 25 MG TAB PO SCH (09:00)
--- NOTE | 2018-05-15 10:38 | CC ---
CARDIAC CATHETERIZATION REPORT INDICATION: Unstable angina. PROCEDURE NOTE: After obtaining informed consent, left heart catheterization and coronary angiogram were performed via the right femoral artery using standard Candelario catheter. The patient tolerated the procedure well without any obvious immediate complications. A femoral angiogram was obtained and Angio-Seal was deployed for hemostasis. FINDINGS: HEMODYNAMICS: Left ventricular end-diastolic pressure is 15 mm. There is no significant gradient across the aortic valve. LEFT VENTRICULOGRAM: Left ventriculogram is not performed. ANGIOGRAPHIC DATA: LEFT MAIN CORONARY ARTERY: Left main coronary artery appears calcified but is free of significant stenosis. It divides into left anterior descending coronary artery and circumflex coronary artery. LAD shows a mild atherosclerotic plaque in its midportion. LAD and its branches, circumflex coronary artery and its branches are free of significant stenosis. Right coronary artery is a large dominant vessel and is free of significant disease. CONCLUSION: Mild nonobstructive coronary artery disease involving mid left anterior descending artery. PLAN: Patient's management is going to be in the form of aggressive risk factor modification, optimal medical therapy. MMODL / IJN: [id number] /
--- NOTE | 2018-05-15 10:41 | HP ---
HISTORY AND PHYSICAL CHIEF COMPLAINT: This is a 73-year-old white male with severe dizziness, orthostatic hypotension and chest pain, admitted to the hospital for rule out myocardial infarction. He is scheduled for heart catheterization today, but due to lightheaded, dizziness, orthostatic hypotension changes despite no blood pressure medications and all of them being stopped, he is admitted to the hospital with chest pain, rule out myocardial infarction. HOME MEDICINES: 1. Lexapro. 2. Omeprazole. 3. Pravachol. 4. Aspirin. 5. Singulair. 6. Flomax. 7. Antivert. He was on lisinopril and Norvasc which was stopped in last 24 hours, 48 hours due to hypotension. REVIEW OF SYSTEMS: Lightheaded, dizziness, near syncope, weakness, fatigue. The fourteen-point review of system otherwise was negative. PAST MEDICAL HISTORY: GERD, deafness, dyslipidemia, hypertension, osteoarthritis, prostate disorder, CVA, TIA, double vision. SURGERIES: Appendectomy, back surgery, cardiac ablation, cholecystectomy, heart catheterization, hernia repair, joint replacement, orthopedic surgery with screw removal, shoulder Anesthesia affected his personality in the past 2 surgeries. FAMILY HISTORY: Mother with myocardial infarction. Father with alcoholism, stomach issues. PHYSICAL EXAMINATION: Temp 98, pulse is 50s to 60s, respiratory rate 15 to 20, blood pressure 120 to 130s over 70s. HEENT: Normocephalic, atraumatic. Pupils equal, round and reactive. NECK: Supple. Lungs are wheezes mild, otherwise clear. CARDIOVASCULAR: Regular rate, rhythm. Orthostatic blood pressure changes, standing up to 90 systolic. PSYCH: Fair mood and affect. NEUROLOGIC: Appears dizzy, weak. Skin is pale with turgor. ASSESSMENT: 1. Orthostatic hypotension. 2. Dehydration. 3. Atypical chest pain, rule out myocardial infarction. IV fluids will be given. Heart catheterization will be done. Further orders pending workup for Cardiology. MMODL / IJN: [id number] /
[2018-05-15 11:43] VITALS: BP 136/65; PULSE 55
[2018-05-15] MEDS ORDERED: PRAVASTATIN SODIUM 40 MG TAB PO SCH (21:00)
== END 2018-05-15 14:37 | disposition home or self-care (01) ==
LOC: EC 15:03 → 1SOBS 18:19
PROVIDERS: ADMIT Family Medicine; ATTEND Family Medicine
DX: I95.1 Orthostatic hypotension (principal); E86.0 Dehydration; R07.89 Other chest pain; R06.02 Shortness of breath; K21.9 Gastro-esophageal reflux disease without esophagitis; E78.5 Hyperlipidemia, unspecified; I10 Essential (primary) hypertension; M19.90 Unspecified osteoarthritis, unspecified site; H91.90 Unspecified hearing loss, unspecified ear; H53.2 Diplopia; N42.9 Disorder of prostate, unspecified; I25.10 Atherosclerotic heart disease of native coronary artery without angina pectoris; Z86.73 Personal history of transient ischemic attack (TIA), and cerebral infarction without residual deficits; Z79.899 Other long term (current) drug therapy; Z79.82 Long term (current) use of aspirin; Z90.49 Acquired absence of other specified parts of digestive tract; Z82.49 Family history of ischemic heart disease and other diseases of the circulatory system; Z81.1 Family history of alcohol abuse and dependence; Z83.79 Family history of other diseases of the digestive system; Z87.891 Personal history of nicotine dependence; F41.9 Anxiety disorder, unspecified; Z88.8 Allergy status to other drugs, medicaments and biological substances
CPT/HCPCS: 96360; 96361 ×2; 99284; 36415; 93005; 93458; 83880; 80053; 84443; 83735; 84484; 85025; 85610; 85730; 71046; G0378 ×2; C1760; C1894; C1769; J2250; J2001; Q9967

== ENCOUNTER → 2018-07-09 | Outpatient (CLI) | payer MEDICARE ==
--- NOTE | 2018-07-09 15:44 | XR ---
EXAMINATION TYPE: XR thoracic spine complete DATE OF EXAM: 07/09/2018 CLINICAL HISTORY: Mid to lower back pain after fall TECHNIQUE: Frontal, lateral, and swimmer's view of thoracic spine are obtained. COMPARISON: None. FINDINGS: Thoracic spine show satisfactory alignment without evidence of acute fracture or dislocatio n. Vertebral body heights are preserved. Multilevel intervertebral disc space narrowing and flowing anterior osteophytes suggest extensive multilevel degenerative disc disease and diffuse idiopathic sk eletal hyperostosis. Visualized ribs are unremarkable. Reverse right total humeral arthroplasty is se en. Cholecystectomy clips are noted. IMPRESSION: No acute fracture or dislocation is seen in the thoracic spine. However there is extensiv e multilevel degenerative disc disease and findings suggesting diffuse idiopathic skeletal hyperostos is.
--- NOTE | 2018-07-09 15:46 | XR ---
EXAMINATION TYPE: XR ribs RT DATE OF EXAM: 07/09/2018 COMPARISON: NONE HISTORY: Right rib pain TECHNIQUE: Frontal and lateral views of the right ribs FINDINGS: Colonic interposition is seen creating lucency of the right upper quadrant. No acute displa bill rib fracture nor chronic healed fracture deformity is seen. Surgical clips are noted in the right upper quadrant. Bridging anterior osteophytes are partially visualized of the thoracic spine relatin g to diffuse idiopathic skeletal hyperostosis. Degenerative changes and postsurgical change of the ri ght shoulder are noted. IMPRESSION: No acute displaced right rib fracture.
== END ==
LOC: RADXRMAIN 14:35
PROVIDERS: ATTEND Family Medicine
DX: S20.20XA Contusion of thorax, unspecified, initial encounter (principal)
CPT/HCPCS: 72072

== ENCOUNTER 2020-03-27 22:09 | Inpatient (IN) | payer MEDICARE ==
[2020-03-28 07:49] LABS: Basophils % (A) 1 %; Eosinophils # (A) 0.4 k/uL (0-0.7); Eosinophils % (A) 6 %; HCT 42.6 % (39.0-53.0); HGB 14.1 gm/dL (13.0-17.5); Lymphocytes # (A) 1.6 k/uL (1.0-4.8); Lymphocytes % (A) 26 %; MCH 29.7 pg (25.0-35.0); MCHC 33.2 g/dL (31.0-37.0); MCV 89.5 fL (80.0-100.0); Mean Platelet Volume 8.2; Monocytes # (A) 0.4 k/uL (0-1.0); Monocytes % (A) 6 %; Neutrophils # (A) 3.5 k/uL (1.3-7.7); Neutrophils % (A) 59 %; Platelet Count 151 k/uL (150-450); RBC 4.76 m/uL (4.30-5.90); RDW 13.3 % (11.5-15.5); WBC 5.9 k/uL (3.8-10.6)
[2020-03-28] MEDS ORDERED: MECLIZINE 25 MG TAB PO PRN (07:53)
[2020-03-28 08:01] LABS: African American GFR (CKD) >90 (>60 ml/min/1.73 sqM); Anion Gap 6 mmol/L; Blood Urea Nitrogen 17 mg/dL (9-20); Calcium 9.1 mg/dL (8.4-10.2); Carbon Dioxide 27 mmol/L (22-30); Chloride 104 mmol/L (98-107); Glucose 98 mg/dL (74-99); Non-African American GFR(CKD) 88 (>60 ml/min/1.73 sqM); Potassium 4.2 mmol/L (3.5-5.1); Sodium 137 mmol/L (137-145)
[2020-03-28] MEDS: MEMANTINE 5 MG TAB PO SCH ×2 (08:47→21:11)
[2020-03-28] MEDS: ESCITALOPRAM 20 MG TAB PO SCH (08:47)
[2020-03-28] MEDS: MAGNESIUM OXIDE 400 MG TAB PO SCH (08:47)
[2020-03-28] MEDS: MIDODRINE 5 MG TAB PO SCH ×2 (08:47→16:47)
[2020-03-28] MEDS ORDERED: MIDODRINE 5 MG TAB PO SCH (09:00)
--- NOTE | 2020-03-28 10:42 | CONS ---
MICHELLE Stephenson is a 74-year-old gentleman with history of paroxysmal SVT, status post ablation, orthostatic hypotension, dyslipidemia and dementia who presented to the hospital having had an episode of what he describes as a syncope. He states that he was standing in one place, went down to the floor, could not get up, called his who called a neighbor and then helped him onto his feet. It started as sudden onset tremulousness in his legs, inability to bear weight and then he went down to the floor. It is unclear if he truly lost his consciousness or not. The patient had been having problems with orthostatic hypotension and dizziness. There is no history of CVA. There is no history of chest pain, difficulty in breathing, leg edema, PND or orthopnea. There is no prior history of myocardial infarction. At the time of my evaluation, he appears comfortable at rest, hemodynamically stable and does not have significant orthostatic changes. He is still somewhat uncomfortable walking on his feet and feels somewhat tremulous on his legs. The patient has history of dizziness, dementia, and orthostatic hypotension. CURRENT MEDICATIONS: Current medications include omeprazole 20 daily, Singulair 10 daily, Aricept 5 daily, aspirin, pravastatin, midodrine, Lexapro, Namenda, magnesium, Motrin, and Antivert. ALLERGIES: Allergic to LIPITOR and FLEXERIL. FAMILY HISTORY: Negative for premature coronary artery disease. SOCIAL HISTORY: Negative for current smoking, EtOH abuse, or drug abuse. REVIEW OF SYSTEMS: HEENT is unremarkable. CARDIAC: As described above. RESPIRATORY: As described above. GI: Negative. GENITOURINARY: Negative. ALLERGY/IMMUNOLOGY: Negative. SKIN: Negative. MUSCULOSKELETAL: Significant for arthritis. PSYCHOSOCIAL: Negative. ENDOCRINE: Negative. HEMATOLOGIC: Negative. DERMATOLOGY: Negative. CONSTITUTIONAL: As described above. Rest of the system review is not relevant. PHYSICAL EXAMINATION: On exam, heart rate is 59 beats per minute, blood pressure is 130/77, respiratory rate is 18, O2 saturation is 96. There is no jugular venous distention. Carotid upstroke is diminished. There is no bruit. Chest exam reveals good air entry bilaterally. Heart exam reveals first and second heart sounds and a systolic murmur at the left lower sternal border. Abdomen is soft. Examination of extremities revealed mild edema. Peripheral pulses are felt. LABS: Labs show a hemoglobin of 14.1, platelet count is 150. Potassium is 4.2. Creatinine is 0.8. Troponin is normal. ASSESSMENT: 1. Orthostatic hypotension. 2. Paroxysmal supraventricular tachycardia, status post ablation. 3. Dementia. PLAN: I will obtain a 2D echo. Watch him on telemetry. Obtain an EKG and review his records from [facility]. Patient apparently had a CT scan of the brain and abdomen. I did a heart catheterization on him in April of 2018 that did not reveal significant obstructive CAD. MMODL / IJN: [id number] /
[2020-03-28] MEDS: ACETAMINOPHEN TAB 325 MG TAB PO PRN ×2 (11:20→16:46)
[2020-03-28] MEDS: IBUPROFEN 400 MG TAB PO PRN ×2 (12:10→21:11)
--- NOTE | 2020-03-28 12:16 | P.CNNES ---
History of Present Illness Consult date: 03/28/20 Requesting physician: Ezequiel Brink Reason for Consult: Dementia, MS, syncope History of Present Illness: Patient is a 74-year-old male came to the hospital physician anesthesiologist today shortly after midnight for chest pain and syncope. Patient states that yesterday he was working on the lawnmower inside the shed. He was tending by the lawnmower, when he had a bout of coughing, then he started shaking uncontrollably in his arms and legs. He turned around and fell, hit his head on the ground. He does not remember if he passed out although he does not remember everything. He was able to get up by grabbing the leonel and pulled himself up. He then started shaking and coughing. He remembers coming around the lawnmower, tried to turn the switch off, but he again started shaking, coughing and then fell, hitting head on the shed door, which opened, and his lower body was inside the shed, but upper body was outside in the snow. This time he could not get up. He called his son to get help and he was brought to the [facility]. He felt very short of breath, and was having pain in the anterior lower rib cage region. He denied any fever or chills. Patient's workup and [facility] showed EKG showed atrial fibrillation, possible left anterior fascicular block. Ventricular rate 62. Chest x-ray sh owed no acute findings, x-ray of the right tibia and fibula was negative for fracture. CT angiogram of the chest with contrast showed no acute process. No consolidation. CT of the cervical spine to 10/06/2020 showed no acute findings. Mild to moderate degenerative disc disease. Computed tomography scan of the head was normal. Patient's blood test shows normal WBC 8.7 hemoglobin 15.5, platelets 202. It was reported in the ED that patient became more lucid and conversational. Patient's sodium 140 potassium 4.3, hepatic panel normal, calcium 9.6, renal functions normal. Troponin was normal. BNP 54.20 which is normal. UA was negative. Patient's blood pressure 145/71, pulse rate 60, temperature 97.8. Patient's CBC, Chem-7 is normal. Troponin negative. Previous blood tests from 07/26/2014 showed negative rheumatoid factor, RENETTA and HLA-B27. Patient's MRI of the brain from 03/12/2017 showed age-related atrophic and chronic small vessel ischemic change. No acute intracranial process. No enhancing lesions. Patient's home medications include aspirin 81 mg, donepezil 5 mg, Lexapro 20 mg, Namenda 5 mg twice a day, midodrine 2.5 mg twice a day, Singulair, omeprazole, Pravachol 40 mg. Patient states he smoked cigars about 5 a day for 5 years, quit 30 years ago. Also uses to drink heavily for 3 years, quit 38 years ago. Patient states that about 5 years ago he had a syncopal spell at a restaurant when he passed out and fell on the floor. He broke his foot. He doesn't remember if he had a coughing spell before the passing out. Review of Systems Positive for lower chest pain from trauma, head injury from the fall. Shortness of breath, shakiness. Coughing. Denies any abdominal pain, nausea vomiting diarrhea. 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 He has diplopia since then and uses prismatic lenses. Patient complains of right wrist pain. Also right tibial pain. Patient is hard of hearing. Denies any ear pain. No dysphagia. All other review of systems noncontributory. Past Medical History Past Medical History: Chest Pain / Angina, CVA/TIA, Eye Disorder, GERD/Reflux, Hearing Disorder / Deafness, Hyperlipidemia, Hypertension, Osteoarthritis (OA), Prostate Disorder Additional Past Medical History / Comment(s): HAS DOUBLE VISION WITHOUT GLASSES ON-POST TIA, vertigo, SOB w/exertion, recent hospitalization @[facility] for CP, dizziness History of Any Multi-Drug Resistant Organisms: None Reported Past Surgical History: Appendectomy, Back Surgery, Cardiac Ablation, Chol ecystectomy, Heart Catheterization, Hernia Repair, Joint Replacement, Orthopedic Surgery Additional Past Surgical History / Comment(s): LEFT LEG, SCREW REMOVAL-LEFT LEG, LEFT SHOULDER, CATARACTS -BOTH EYES, both knees replaced, fibula fracture, TURP, growth removed from inside right eyelid Past Anesthesia/Blood Transfusion Reactions: Previous Problems w/ Anesthesia Additional Past Anesthesia/Blood Transfusion Reaction / Comment(s): STATES " I HAD SEVERE PERSONALITY CHANGES WITH THE PAST 2 SURGERIES, I WAS NOT NICE TO MY AT ALL" Past Psychological History: Anxiety Additional Psychological History / Comment(s): STATES IS NOT SURE WHY HE IS ON LEXAPRO Smoking Status: Former smoker Past Alcohol Use History: Abuse Additional Past Alcohol Use History / Comment(s): is alcoholic. pt states last drink was in 1979. Past Drug Use History: None Reported - Past Family History Mother Family Medical History: Myocardial Infarction ([place]) Father Additional Family Medical History / Comment(s): alcoholism, due to stomach issues. Medications and Allergies Home Medications Medication Instructions Recorded Confirmed Type Omeprazole 20 mg PO HS 03/08/14 03/28/20 History Pravastatin Sodium [Pravachol] 40 mg PO HS 06/20/15 03/28/20 History Aspirin 81 mg PO HS 05/11/18 03/28/20 History Montelukast [Singulair] 10 mg PO HS 05/11/18 03/28/20 History Ibuprofen [Motrin] 400 mg PO DAILY PRN 05/14/18 03/28/20 History Meclizine [Antivert] 25 mg PO BID PRN 05/14/18 03/28/20 History Donepezil [Aricept] 5 mg PO HS 03/28/20 03/28/20 History Escitalopram [Lexapro] 20 mg PO DAILY 03/28/20 03/28/20 History Magnesium 400 mg PO DAILY 03/28/20 03/28/20 History Memantine [Namenda] 5 mg PO BID 03/28/20 03/28/20 History Midodrine HCl [ProAmantine] 2.5 mg PO BID 03/28/20 03/28/20 History Allergies Allergy/AdvReac Type Severity Reaction Status Date / Time atorvastatin calcium Allergy PAIN IN Verified 05/14/18 15:08 [From Lipitor] MUSCLES cyclobenzaprine HCl Allergy "BLISTERS" Verified 05/14/18 15:08 [From Flexeril] Physical Examination - Vital Signs Vital Signs: Vital Signs Temp Pulse Pulse Pulse Pulse Resp BP 03/28/20 08:00 59 L 63 56 L 56 L 18 117/70 03/28/20 03:25 97.9 F 58 L 17 03/28/20 00:20 97.8 F 60 18 BP BP BP Pulse Ox 03/28/20 08:00 130/77 131/73 98 03/28/20 03:25 111/54 96 03/28/20 00:20 145/71 96 Intake and Output 03/27/20 03/28/20 03/28/20 22:59 06:59 14:59 Intake Total 0 Output Total 220 300 Balance -220 -300 Intake: Oral 0 Output: Urine 220 300 Other: Voiding Method Urinal # Voids 1 Weight 107.5 kg On examination patient is an elderly male, very pleasant in no acute distress. Patient is alert and awake fully oriented. His speech is normal with no aphasia or dysarthria. Patient knows it is 03/28/2020 and that he is in [facility] in [place] and that he lives in [place]. Attention, concentration and fund of knowledge is adequate. Cranial examination pupils are round and reactive to light, visual choudhury are full on confrontation, extraocular muscles are intact with no nystagmus. Patient does have binocular diplopia in the primary and all gaze, that resolved with closing one or the other eye. This is chronic, for which he has prismatic lenses. Face is symmetric, tongue protrudes to the midline. Palatal elevation and sensation normal, hearing is moderately decreased, shoulder shrug normal. Facial sensation is normal. On muscle strength testing there is no pronator drift, and the strength is normal in the arms and legs. Patient does have some giveaway weakness in the deltoids, biceps and left hip. Left hip may be slightly weak as compared to the right. Reflexes are 1+ and plantars are downgoing. Sensory touch is equal with no neglect. No ataxia for [id number] testing, tone and bulk of muscles normal. Patient does have some minor, arrhythmic tremor of the head but no definitive myoclonic jerks noted. On general examination there is no carotid bruit or murmur, peripheral pulses are present. Mild peripheral edema. Abdomen is soft and nontender. Results - Laboratory Findings CBC and BMP: 03/28/20 07:00 03/28/20 07:00 Assessment and Plan Assessment: * Syncopal spell, possible vasovagal versus tussive syncope. Patient had a bout of coughing, started shaking in the and fell down, with questionable loss of consciousness. Rule out arrhythmia. Patient's EKG from [facility] mentions about atrial fibrillation, although EKG performed at [place] showed sinus bradycardia with first-degree AV block, with heart rate 52. May need further testing to rule out atrial fibrillation or other bradyarrhythmias. Events does not appear seizure. * Hypertension * Chronic diplopia * Osteoarthritis. Plan: * Carotid Doppler * Telemetry monitoring so far showing sinus bradycardia in 50s. * Cardiology also on board to rule out arrhythmia. * TSH, B12, folate. * We will follow.
--- NOTE | 2020-03-28 13:54 | US ---
EXAMINATION TYPE: US carotid duplex BILAT DATE OF EXAM: 03/28/2020 COMPARISON: NONE CLINICAL HISTORY: Syncope. Syncope EXAM MEASUREMENTS: RIGHT: Peak Systolic Velocity (PSV) cm/sec ----- Right CCA: 108.2 ----- Right ICA: 120 ----- Right ECA: 129.8 ICA/CCA ratio: 1.1 RIGHT: End Diastole cm/sec ----- Right CCA: 13.6 ----- Right ICA: 15.6 ----- Right ECA: 0 LEFT: Peak Systolic Velocity (PSV) cm/sec ----- Left CCA: 103.1 ----- Left ICA: 79.8 ----- Left ECA: 98.7 ICA/CCA ratio: 0.8 LEFT: End Diastole cm/sec ----- Left CCA: 15.9 ----- Left ICA: 12.9 ----- Left ECA: 0 VERTEBRALS (direction of flow): Right Vertebral: Antegrade Left Vertebral: Antegrade Rhythm: Normal Keene scale images show mild plaque left carotid bulb level. Velocity measurements and ratios in visua lized portion of both internal carotid arteries within normal limits. IMPRESSION: No hemodynamically significant stenosis in either internal carotid artery. Increased peak systolic velocity bilateral common carotid arteries raises concern for underlying pulmonary artery h ypertension. Correlate clinically. Criteria for Assigning % of Stenosis / Diameter reduction (Estimation based on the indirect measurements of the internal carotid artery velocities (ICA PSV). 1. Normal (no stenosis)=ICA PSV < 125 cm/s: ratio < 2.0: ICA EDV<40 cm/s. 2. Less than 50% stenosis=ICA PSV < 125 cm/s: ratio < 2.0: ICA EDV<40 cm/s. 3. 50 to 69% stenosis=ICA PSV of 125 to 230 cm/s: ration 2.0 ? 4.0: ICA EDV 40-100 cm/s. 4. Greater than 70% stenosis to near occlusion= ICA PSV > 230 cm/s: ratio > 4.0: ICA EDV > 100 cm/s. 5. Near occlusion= ICA PSV velocities may be low or undetectable: variable ratio and ICA EDV. 6. Total occlusion=unable to detect flow.
--- NOTE | 2020-03-28 18:15 | HP ---
HISTORY AND PHYSICAL This is a 74-year-old white male who came into the hospital early this morning after midnight with chest pain and syncope. 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 He had a bout of coughing and started shaking uncontrollably in his arms and legs. He fell, hit his head on the ground. He does not remember whether he passed out, but he does not remember everything. He was able to get up and grab the machine and pulled himself up. He was shaking and coughing and remembers coming around the anvilsmith/shaking and fell, hitting his head on the shed door lower body. He was in the snow. He could not get up. He called his son and was taken to [facility] and was sent here. EKG showed atrial fibrillation, LA, left anterior fascicular block. Chest x-ray showed no acute findings. Right tib-fib was negative for fracture. CT of the chest shows no acute process. No consolidation. CT scan of the cervical spine showed no acute findings, mild to moderate degenerative disease. CT scan of the head was normal. White count is 8.7, hemoglobin platelets 202. I talked to him last night. He became more lucid conversational before he was transferred down here from [place]. His labs showed sodium 140, potassium 4.3, calcium 9.6. Troponins normal. Renal function normal. BNP is 54. UA is negative. REVIEW OF SYSTEMS: Fourteen-point review of systems otherwise negative. Labs as mentioned above. Medications as mentioned above. PAST MEDICAL HISTORY: Angina, CVA, TIA, GERD, hearing disorder, dyslipidemia, hypertension, osteoarthritis, prostate disorder, vertigo, cardiac ablation, appendectomy, back surgery, cholecystectomy, heart catheterization, hernia repair, orthopedic repair, cataracts in both eyes. FAMILY HISTORY: Mother with myocardial infarction. Father with alcoholism. HOME MEDICINES: He takes Antivert 25 b.i.d., Motrin 400 daily, Singulair 10 mg daily, aspirin 81 mg daily, Pravachol 40 mg daily, omeprazole 20 mg daily, midodrine 2.5 b.i.d., Namenda 5 mg b.i.d., magnesium 400 mg daily, Lexapro 20 mg daily, Aricept 5 mg daily. ALLERGIES: ATORVASTATIN, FLEXERIL. PHYSICAL EXAMINATION: VITAL SIGNS: Temperature 97.8, pulse 50s to 60s, respiratory blood 16-18, blood pressure 117/70. ASSESSMENT: Elderly white male in no acute distress. Alert, oriented x3. He has no dysarthria or aphasia. Cranial nerves otherwise are within normal limits in my opinion. No ataxia. [id number] testing mild tremor. CARDIOVASCULAR: S1, S2. Irregularly irregular rhythm. LUNGS: Clear. PSYCH: Fair mood and affect. ASSESSMENT: Syncopal spell, possible vasovagal versus tussive syncope. He had a bout of coughing and started shaking, fell down. He has a history atrial fibrillation with sinus bradycardia, first bundle branch block, intermittent. No seizures, hypertension, diplopia, osteoarthritis. Carotid Doppler telemetry. Cardiology consult. TSH, B12, folic acid. Possible discharge home tomorrow if stable. MMODL / IJN: [id number] /
--- NOTE | 2020-03-28 19:06 | CT ---
EXAMINATION TYPE: CT chest wo con DATE OF EXAM: 03/28/2020 COMPARISON: Same-day radiograph. HISTORY: rule out pneumonia CT DLP: 652.7 mGycm. Automated Exposure Control for Dose Reduction was Utilized. TECHNIQUE: CT scan of the thorax is performed without IV contrast. FINDINGS: LUNGS: There is minimal bibasilar atelectasis. Otherwise lungs are clear. No patchy airspace opacity, consolidation or suspicious nodules. There is no pleural effusion or pneumothorax seen. The trach eobronchial tree is patent. MEDIASTINUM: Lack of IV contrast is noted to limit evaluation for mediastinal and especially hilar ad enopathy. There are no definitive greater than 1 cm hilar or mediastinal lymph nodes. There is modera te thoracic aorta and coronary atherosclerotic disease. No cardiomegaly or pericardial effusion is s een. OTHER: No additional significant abnormality is seen. Left shoulder arthroplasty and postsurgical ch anges of the right glenoid are seen. IMPRESSION: No acute cardiopulmonary abnormality.
--- NOTE | 2020-03-28 19:07 | XR ---
EXAMINATION TYPE: XR chest 2V DATE OF EXAM: 03/28/2020 COMPARISON: NONE HISTORY: Cough. TECHNIQUE: Frontal and lateral views of the chest are obtained. FINDINGS: There is no focal air space opacity, pleural effusion, or pneumothorax seen. The cardiac silhouette size is within normal limits. The osseous structures demonstrate no acute abnormality. L eft shoulder arthroplasty and postsurgical changes of the right glenoid seen. IMPRESSION: No acute cardiopulmonary process.
[2020-03-28] MEDS: ASPIRIN 81 MG PO SCH (21:11)
[2020-03-28] MEDS: MONTELUKAST 10 MG TAB PO SCH (21:11)
[2020-03-28] MEDS: PRAVASTATIN SODIUM 40 MG TAB PO SCH (21:11)
[2020-03-28] MEDS: PANTOPRAZOLE 40 MG TABLET PO SCH (21:11)
[2020-03-28 21:49] LABS: Folate, Serum 16.1 ng/mL
[2020-03-28] MEDS: DONEPEZIL 5 MG TAB PO SCH (21:54)
[2020-03-29] MEDS: ACETAMINOPHEN TAB 325 MG TAB PO PRN (05:11)
[2020-03-29] MEDS: MIDODRINE 5 MG TAB PO SCH ×2 (06:31→17:25)
[2020-03-29] MEDS: ESCITALOPRAM 20 MG TAB PO SCH (09:58)
[2020-03-29] MEDS: MEMANTINE 5 MG TAB PO SCH ×2 (09:59→21:28)
[2020-03-29] MEDS: MAGNESIUM OXIDE 400 MG TAB PO SCH (09:59)
--- NOTE | 2020-03-29 10:21 | ECHOF ---
Referral Reason:SYNCOPE MEASUREMENTS -------- HEIGHT: 182.9 cm WEIGHT: 107.0 kg BP: 230/73 RVIDd: 3.7 cm (< 3.3) IVSd: 1.2 cm (0.6 - 1.1) LVIDd: 4.7 cm (3.9 - 5.3) LVPWd: 1.2 cm (0.6 - 1.1) IVSs: 1.7 cm LVIDs: 3.4 cm LVPWs: 1.8 cm LAESV Index (A-L): 34.94 ml/m Ao Diam: 3.3 cm (2.0 - 3.7) AV Cusp: 1.2 cm (1.5 - 2.6) MV EXCURSION: 19.892 mm (> 18.000) MV EF SLOPE: 138 mm/s (70 - 150) EPSS: 0.2 cm MV E Fili: 0.62 m/s MV DecT: 248 ms MV A Fili: 0.55 m/s MV E/A Ratio: 1.12 RAP: 5.00 mmHg RVSP: 20.95 mmHg FINDINGS -------- Resting bradycardia (HR<60bpm). This was a technically difficult study with suboptimal views. The left ventricular size is normal. There is mild concentric left ventricular hypertrophy. Overa ll left ventricular systolic function is low-normal with, an EF between 50 - 55 %. The right ventricle is mildly enlarged. LA is moderately dilated 34-39 ml/m2 The right atrial size is normal. 5.0mg of Lumason was utilized for enhancement of images Interatrial and interventricular septum intact. There is moderate aortic valve sclerosis. Trace amount of aortic regurgitation. The mitral valve is normal. Mild mitral regurgitation is present. The tricuspid valve appears structurally normal. Mild tricuspid regurgitation present. There is n o evidence of pulmonary hypertension. The right ventricular systolic pressure, as measured by Doppl er, is 20.95mmHg. Trace/mild (physiologic) pulmonic regurgitation. The aortic root size is normal. IVC Not well visulized. There is no pericardial effusion. CONCLUSIONS -------- 1. This was a technically difficult study with suboptimal views. 2. There is mild concentric left ventricular hypertrophy. 3. Overall left ventricular systolic function is low-normal with, an EF between 50 - 55 %. 4. The right ventricle is mildly enlarged. 5. LA is moderately dilated 34-39 ml/m2 6. There is moderate aortic valve sclerosis. 7. Trace amount of aortic regurgitation. 8. Mild mitral regurgitation is present. 9. Mild tricuspid regurgitation present. HUMAN RESOURCES COMMUNICATIONS MANAGER: Sabi Sebastian RDCS
[2020-03-29] MEDS: IBUPROFEN 400 MG TAB PO PRN (10:23)
--- NOTE | 2020-03-29 15:20 | P.PN ---
Subjective Progress Note Date: 03/29/20 HISTORY OF PRESENT ILLNESS: 74-year-old male was admitted to the hospital secondary to presyncope. Patient examined this morning at the bedside. Patient currently denies shortness of breath or chest pain. Denies dizziness or lightheadedness. Echocardiogram revealed ejection fraction 50-55%, trace aortic regurgitation, mild mitral regurgitation, and mild tricuspid regurgitation. EKG reviewed from [facility]. Not entirely convinced EKG is atrial fibrillation as there is a lot of baseline artifact. Patient is currently in sinus rhythm. No evidence of atrial fibrillation during hospitalization. Patient having pauses on telemetry. Longest saved pauses 2.7 seconds. Orthostatic blood pressures obtained revealed blood pressure supine 131/73. Blood pressure sitting 117/70. Blood pressure standing 130/77. PHYSICAL EXAM: VITAL SIGNS: Reviewed. GENERAL: Well-developed in no acute distress. NECK: Supple. No JVD or thyromegaly LUNGS: Respirations even and unlabored. Lungs essentially clear to auscultation bilaterally. HEART: Regular rate and rhythm. S1 and S2 heard. Systolic murmur noted. EXTREMITIES: Normal range of motion. No clubbing or cyanosis. Peripheral pulses intact. No lower extremity edema ASSESSMENT: Pre-syncope, etiology unclear Hypertension History of paroxysmal supraventricular tachycardia with previous ablation PLAN: Neurology following. Appreciate input. Continue telemetry monitoring Avoid any AV brittani blocking agents Will place event monitor at the time of discharge Further recommendations pending patient course. Patient to follow up with Dr. Sandhu. Nurse practitioner note has been reviewed by physician. Signing provider agrees with the documented findings, assessment, and plan of care. Objective - Vital Signs Vital signs: Vital Signs Temp 98.2 F 03/29/20 12:20 Pulse 55 L 03/29/20 12:20 Resp 18 03/29/20 12:20 BP 148/77 03/29/20 12:20 Pulse Ox 98 03/29/20 12:20 Intake & Output 03/28/20 03/29/20 03/29/20 18:59 06:59 18:59 Intake Total 840 120 Output Total 975 700 500 Balance -135 -700 -380 Weight 107 kg Intake: Oral 840 120 Output: Urine 975 700 500 Other: Voiding Method Urinal Urinal Urinal # Voids 3 3 1 # Bowel Movements 0 - Labs CBC & Chem 7: 03/28/20 07:00 03/28/20 07:00
[2020-03-29] MEDS ORDERED: busPIRone HCl 5 MG TAB PO STA (16:44)
--- NOTE | 2020-03-29 17:02 | PN ---
PROGRESS NOTE This is a 74-year-old white male who has had negative troponins x3, normal TSH, folate, negative CT scan of the chest. Discussed with him orthostatic hypotension versus often due to vasovagal symptomatology causing syncope. He has just been up ambulating a little bit today. Blood pressure is 150/72, O2 98 on room air, pulses 50s, 60s, temperature 97 to 98. CARDIOVASCULAR: S1, S2. LUNGS: Clear. GI: Soft. ASSESSMENT: Vasovagal syncope secondary to cough-induced syncope, possibly due to anxiety making him cough; as he states, when he breathes real fast his legs are real cold. Will continue with current treatments. We are going to start him on BuSpar 5 mg a day to go home with and Anoro inhaler 200/5 one puff daily to prevent coughing. Please see further orders. MMODL / IJN: [id number] /
--- NOTE | 2020-03-29 17:52 | P.PN ---
Subjective Progress Note Date: 03/29/20 Patient's was also present today. Patient states that when he starts coughing, he develops headache, pointing to the occipital region, and in the lower rib cage anteriorly, and then his feet starts getting numb. He starts panting. The headache can go up to 7/10. He develops difficulty breathing with it. Patient was sitting comfortably in the recliner when I entered the room. He told me that he will show me this episode. He laid down in the bed, and started coughing, and then started panting and then the headache went up from 3 while sitting, up to 7/10 when he was having this episode. It almost appears like a panic attack. Patient's admits that he does get anxious but never had these episodes. Patient's states that he sometimes used to get lightheaded before but never had these episodes before. Again it was brought on by the patient in front of me after he started voluntarily coughing, and then panting. Telemetry monitoring showing sinus bradycardia with sinus pauses up to 2.7 second once. Objective - Vital Signs Vital signs: Vital Signs Temp 98.3 F 03/29/20 16:00 Pulse 49 L 03/29/20 16:00 Resp 18 03/29/20 16:00 BP 143/66 03/29/20 16:00 Pulse Ox 95 03/29/20 16:00 Intake & Output 03/28/20 03/29/20 03/29/20 18:59 06:59 18:59 Intake Total 840 720 Output Total 975 700 500 Balance -135 -700 220 Weight 107 kg Intake: Oral 840 720 Output: Urine 975 700 500 Other: Voiding Method Urinal Urinal Urinal # Voids 3 3 1 # Bowel Movements 0 - Exam Patient's mental status, speech and language functions are normal. Appears somewhat anxious. Cranial nerves are normal. Muscle strength is normal in the arms and legs distally and proximally. No ataxia. Tone and bulk of muscles normal. Patient was able to get up from the recliner, walk to the bed slightly hanging onto the table. - Labs CBC & Chem 7: 03/28/20 07:00 03/28/20 07:00 Assessment and Plan Assessment: * Syncopal spell, possible vasovagal versus tussive syncope versus arrhythmia. Telemetry monitoring showing some occasional sinus pause, maximum up to 2.7 seconds. * Episodes of coughing, followed by developing occipital headache, lower anterior rib cage pain and paresthesias in the feet, likely panic attacks. * Hypertension * Chronic diplopia * Osteoarthritis. Plan: * Carotid Doppler showed no significant stenosis either ICA. Antegrade flow in both vertebral arteries. * 2-D echo showed mild concentric LVH, EF is 50-55%. Left atrium is moderately dilated. Moderate aortic valvular sclerosis. * Telemetry monitoring so far showing sinus bradycardia in 50s, occasional sinus pauses. Cardiology on board. * TSH 2.03, B12 605, folate 16.1. * Patient is already on Lexapro 20 mg and BuSpar. May need to further optimize antianxiety medication.
[2020-03-29] MEDS: PANTOPRAZOLE 40 MG TABLET PO SCH (21:28)
[2020-03-29] MEDS: ASPIRIN 81 MG PO SCH (21:28)
[2020-03-29] MEDS: MONTELUKAST 10 MG TAB PO SCH (21:28)
[2020-03-29] MEDS: DONEPEZIL 5 MG TAB PO SCH (21:28)
[2020-03-29] MEDS: PRAVASTATIN SODIUM 40 MG TAB PO SCH (21:28)
[2020-03-30] MEDS: ACETAMINOPHEN TAB 325 MG TAB PO PRN (02:41)
[2020-03-30 04:19] VITALS: RESP 17
[2020-03-30] MEDS: MIDODRINE 5 MG TAB PO SCH (06:30)
[2020-03-30] MEDS: ESCITALOPRAM 20 MG TAB PO SCH (09:11)
[2020-03-30] MEDS: MEMANTINE 5 MG TAB PO SCH (09:11)
[2020-03-30] MEDS: MAGNESIUM OXIDE 400 MG TAB PO SCH (09:11)
[2020-03-30] MEDS: IBUPROFEN 400 MG TAB PO PRN (09:12)
[2020-03-30 11:19] VITALS: BP 133/59; TEMP 98.4
[2020-03-30 12:09] LABS: Glucose,Whole Blood 85 mg/dL (75-99)
--- NOTE | 2020-03-30 12:46 | P.PN ---
Subjective Progress Note Date: 03/30/20 HISTORY OF PRESENT ILLNESS: 03/29/2020 74-year-old male was admitted to the hospital secondary to presyncope. Patient examined this morning at the bedside. Patient currently denies shortness of breath or chest pain. Denies dizziness or lightheadedness. Echocardiogram revealed ejection fraction 50-55%, trace aortic regurgitation, mild mitral regurgitation, and mild tricuspid regurgitation. EKG reviewed from [facility]. Not entirely convinced EKG is atrial fibrillation as there is a lot of baseline artifact. Patient is currently in sinus rhythm. No evidence of atrial fibrillation during hospitalization. Patient having pauses on telemetry. Longest saved pauses 2.7 seconds. Orthostatic blood pressures obtained revealed blood pressure supine 131/73. Blood pressure sitting 117/70. Blood pressure standing 130/77. 03/30/2020 Patient examined this morning at the bedside. Patient denies chest pain or pressure. Denies shortness of breath. Patient does not appear to be having any further pauses. He has been ambulating in the hallway. Denies dizziness or li ghtheadedness. Orthostatic blood pressures were obtained this morning and were unremarkable. PHYSICAL EXAM: VITAL SIGNS: Reviewed. GENERAL: Well-developed in no acute distress. NECK: Supple. No JVD or thyromegaly LUNGS: Respirations even and unlabored. Lungs essentially clear to auscultation bilaterally. HEART: Regular rate and rhythm. S1 and S2 heard. Systolic murmur noted. EXTREMITIES: Normal range of motion. No clubbing or cyanosis. Peripheral pulses intact. No lower extremity edema ASSESSMENT: Pre-syncope, etiology unclear Hypertension History of paroxysmal supraventricular tachycardia with previous ablation PLAN: Neurology following. Appreciate input. Continue telemetry monitoring Avoid any AV brittani blocking agents Patient to have event monitor placed at time of discharge Patient may be discharged home today from a cardiac perspective. Patient to follow up with Dr. Sandhu. Nurse practitioner note has been reviewed by physician. Signing provider agrees with the documented findings, assessment, and plan of care. Objective - Vital Signs Vital signs: Vital Signs Temp 98.4 F 03/30/20 11:17 Pulse 57 L 03/30/20 11:17 Resp 17 03/30/20 11:17 BP 133/59 03/30/20 11:17 Pulse Ox 96 03/30/20 11:17 Intake & Output 0203/30/20 03/30/20 18:59 06:59 18:59 Intake Total 1440 480 Output Total 500 500 Balance 940 -20 Weight 104.4 kg Intake: Oral 1440 480 Output: Urine 500 500 Other: Voiding Method Urinal Urinal Urinal # Voids 2 3 1 # Bowel Movements 1 - Labs CBC & Chem 7: 03/28/20 07:00 03/28/20 07:00
[2020-03-30 15:08] VITALS: PULSE 63
--- NOTE | 2020-03-30 18:53 | P.PN ---
Subjective Progress Note Date: 03/30/20 03/30/2019: Patient's was also present today. Patient is doing better. Patient states that his headaches improved. Not as bad. He is walking around the hallway very well. Patient has been seen by manufacturing director, who is recommending heart monitoring. Patient appears less anxious. Telemetry monito ring showing sinus rhythm with sinus bradycardia in the 50s and 40s. Patient apparently was started on Aricept 5 mg daily few weeks ago. Aricept has to be used with caution in patients with heart block. Patient is also on Namenda 5 mg twice a day. 03/29/2019: Patient states that when he starts coughing, he develops headache, pointing to the occipital region, and in the lower rib cage anteriorly, and then his feet starts getting numb. He starts panting. The headache can go up to 7/10. He develops difficulty breathing with it. Patient was sitting comfortably in the recliner when I entered the room. He told me that he will show me this episode. He laid down in the bed, and started coughing, and then started panting and then the headache went up from 3 while sitting, up to 7/10 when he was having this episode. It almost appears like a panic attack. Patient's admits that he does get anxious but never had these episodes. Patient's states that he sometimes used to get lightheaded before but never had these episodes before. Again it was brought on by the patient in front of me after he started voluntarily coughing, and then panting. Telemetry monitoring showing sinus bradycardia with sinus pauses up to 2.7 second once. Objective - Vital Signs Vital signs: Vital Signs Temp 98.4 F 03/30/20 11:17 Pulse 63 03/30/20 14:00 Resp 17 03/30/20 14:00 BP 133/59 03/30/20 11:17 Pulse Ox 96 03/30/20 11:17 Intake & Output 03/29/20 03/30/20 03/30/20 18:59 06:59 18:59 Intake Total 1440 480 Output Total 500 500 Balance 940 -20 Weight 104.4 kg Intake: Oral 1440 480 Output: Urine 500 500 Other: Voiding Method Urinal Urinal Urinal # Voids 2 3 2 # Bowel Movements 1 - Exam Patient's mental status, speech and language functions are normal. Appears somewhat anxious. Cranial nerves are normal. Muscle strength is normal in the arms and legs distally and proximally. No ataxia. Tone and bulk of muscles normal. Patient was walking in the hallway, appeared completely normal balance. No parkinsonian features. - Labs CBC & Chem 7: 03/28/20 07:00 03/28/20 07:00 Assessment and Plan Assessment: * Syncopal spell, possible vasovagal versus tussive syncope versus arrhythmia. Telemetry monitoring showing some occasional sinus pause, maximum up to 2.7 seconds. * Episodes of coughing, followed by developing occipital headache, lower anterior rib cage pain and paresthesias in the feet, likely panic attacks. * Hypertension * Chronic diplopia * Osteoarthritis. Plan: * Carotid Doppler showed no significant stenosis either ICA. Antegrade flow in both vertebral arteries. * 2-D echo showed mild concentric LVH, EF is 50-55%. Left atrium is moderately dilated. Moderate aortic valvular sclerosis. * Telemetry monitoring so far showing sinus bradycardia in 50s, occasional sinus pauses. Cardiology on board. Patient to undergo event monitoring. * TSH 2.03, B12 605, folate 16.1. * Patient is already on Lexapro 20 mg and BuSpar. May need to further optimize antianxiety medication. * If any concerns about heart block, would recommend stopping Aricept, as Aricept has to be used in caution with patient's with heart block. * Neurologically clear for discharge.
== END 2020-03-30 16:18 | disposition home or self-care (01) | DRG 312 ==
LOC: 3SCARD 03-28 00:06
PROVIDERS: ADMIT Family Medicine; ATTEND Family Medicine
DX: R55 Syncope and collapse (principal); I47.1 Supraventricular tachycardia; I35.8 Other nonrheumatic aortic valve disorders; E78.5 Hyperlipidemia, unspecified; F03.90 Unspecified dementia, unspecified severity, without behavioral disturbance, psychotic disturbance, mood disturbance, and anxiety; F41.0 Panic disorder [episodic paroxysmal anxiety]; H53.2 Diplopia; H91.90 Unspecified hearing loss, unspecified ear; I10 Essential (primary) hypertension; I44.0 Atrioventricular block, first degree; I44.4 Left anterior fascicular block; I48.91 Unspecified atrial fibrillation; M19.90 Unspecified osteoarthritis, unspecified site; R51.9 Headache, unspecified; Z91.81 History of falling; H26.9 Unspecified cataract; Z90.49 Acquired absence of other specified parts of digestive tract; Z82.49 Family history of ischemic heart disease and other diseases of the circulatory system; Z81.1 Family history of alcohol abuse and dependence; Z87.891 Personal history of nicotine dependence; F10.21 Alcohol dependence, in remission; M50.30 Other cervical disc degeneration, unspecified cervical region; Z90.79 Acquired absence of other genital organ(s); Z88.8 Allergy status to other drugs, medicaments and biological substances; Z79.82 Long term (current) use of aspirin; Z79.899 Other long term (current) drug therapy; Z86.73 Personal history of transient ischemic attack (TIA), and cerebral infarction without residual deficits
CPT/HCPCS: 71046; 71250; 80048; 82607; 82746; 84443; 84484; 85025; 93270; 93306; 93880

== ENCOUNTER 2020-04-28 10:07 | Day surgery (SDC) | payer MEDICARE ==
[2020-04-25 10:59] VITALS: BMI 31.7
[~2020-04-28 10:07] MED LIST changes: -REGADENOSON 0.4 MG/5 ML SYRINGE IV ONE; +ceFAZolin 1 GM in SODIUM CHLORIDE 0.9% 250 ML IRRIGATION PRN
[2020-04-28] MEDS: SODIUM CHLORIDE 0.9% 1,000 ML IV SCH ×2 (10:30→14:00)
[2020-04-28 10:45] VITALS: RESP 16
[2020-04-28 11:46] LABS: Basophils # (A) 0.1 k/uL (0-0.2); Basophils % (A) 1 %; Eosinophils # (A) 0.4 k/uL (0-0.7); Eosinophils % (A) 5 %; HCT 47.9 % (39.0-53.0); HGB 15.9 gm/dL (13.0-17.5); Lymphocytes # (A) 2.1 k/uL (1.0-4.8); Lymphocytes % (A) 24 %; MCH 29.6 pg (25.0-35.0); MCHC 33.3 g/dL (31.0-37.0); MCV 89.1 fL (80.0-100.0); Mean Platelet Volume 8.5; Monocytes # (A) 0.4 k/uL (0-1.0); Monocytes % (A) 4 %; Neutrophils % (A) 66 %; Platelet Count 191 k/uL (150-450); RBC 5.37 m/uL (4.30-5.90); RDW 13.5 % (11.5-15.5); WBC 9.1 k/uL (3.8-10.6)
[2020-04-28 11:52] LABS: African American GFR (CKD) >90 (>60 ml/min/1.73 sqM); Anion Gap 9 mmol/L; Blood Urea Nitrogen 21 mg/dL (9-20); Calcium 9.7 mg/dL (8.4-10.2); Carbon Dioxide 27 mmol/L (22-30); Chloride 104 mmol/L (98-107); Glucose 99 mg/dL (74-99); Non-African American GFR(CKD) 81 (>60 ml/min/1.73 sqM); Potassium 4.6 mmol/L (3.5-5.1); Sodium 140 mmol/L (137-145)
[2020-04-28] MEDS ORDERED: LIDOCAINE 1% INJ 10MG/ML (20 ML MDV) ONE (12:03)
[2020-04-28] MEDS ORDERED: LIDOCAINE 1% INJ 10MG/ML (20 ML MDV) SQ ONE (12:08)
[2020-04-28] MEDS ORDERED: ACETAMINOPHEN TAB 325 MG TAB PO PRN (13:02)
[2020-04-28] MEDS ORDERED: MECLIZINE 25 MG TAB PO PRN (13:03)
[2020-04-28] MEDS ORDERED: IBUPROFEN 400 MG TAB PO PRN (13:03)
[2020-04-28] MEDS ORDERED: IPRATROPIUM 0.5 MG/2.5 ML NEBU INHALATION ONE (15:52)
[2020-04-28] MEDS: IPRATROPIUM 0.5 MG/2.5 ML NEBU INHALATION SCH (16:15)
--- NOTE | 2020-04-28 16:17 | P.PCN ---
Date of Procedure: 04/28/20 Preoperative Diagnosis: History of syncope with evidence of high degree AV block. Intermittent SVT and also atrial flutter Postoperative Diagnosis: The same Procedure(s) Performed: Axillary venography and dual-chamber permanent pacemaker implantation Description of Procedure: HISTORY: This is a 74 old gentleman with history of postural hypotension, syncopal episodes, who was recently evaluated by given monitor which showed ev idence of high degree AV block with long pauses. Patient was evaluated by Dr. Sandhu and recommended a permanent pacemaker implantation. CONSENT:I have discussed the risks, benefits and alternative therapies for the above-mentioned procedure and for both sedation/analgesia as well as necessary blood product administration, if indicated, as they pertain to this patient. The patient has indicated understanding and acceptance of the risks and procedures discussed. PROCEDURE: Patient was brought to the lab in a fasting state. Patient was prepped and draped in the usual fashion. Patient was given IV sedation with fentanyl and Versed. The skin below the left clavicle was infiltrated with lidocaine. An incision was made parallel to deltopectoral groove was deepened until the pectoral fascia was exposed. A pocket was created by blunt dissection and cautery. Axillary venography was performed to delineate the course of the axillary vein. 2 sticks were performed into extrathoracic portion of the axillary vein and 2 sheaths were advanced over the guidewires and left in subclavian vein. Conscious Sedation: Patient is not given any sedation because of patient's adverse reaction. Fentanyl 0 g Duration 38minutes LEADS: ATRIAL: This is manufactured by [employer]. The model number is 5076-52. The serial number is [id number] VENTRICULAR: This is manufactured by [employer]. Model number is 5076-58. The serial number is [id number] THE DEVICE: This is manufactured by [employer]. The model number is W!DR01 and the serial number is [id number]. The ventricular lead is maneuvered l with help of a straight and curved stylets into the left ventricle apical region. Satisfactory position was obtained and threshold measurements were made. The atrial lead was then maneuvered into the right atrial appendage. And thresholds were obtained. THRESHOLDS: ATRIUM: The patient was in atrial flutter. Pacing threshold was not obtained. The impedance was 798. The flutter waves are about 1 VENTRICLE: The minimal patient threshold was 0.5 old at a pulse width of 0.4 ms. The impedance was 1577 R-wave: And 0.6 The leads and pulse generator remained in the pocket after it was washed with antibiotics. Pocket was closed in the usual fashion. The fascia was closed with 2-0 Prolene ,the subcutaneous tissue was closed with 3-0 Prolene and the skin was closed with 4-0 Prolene. PROGRAMMING: MODE: AAIR with mode switch to DDDR. RATE: 60-120 OUTPUT: Atrium 3.5 Ventricle: 3.5 FINAL IMPRESSION: 1. Axillary venography #2. Dual-chamber permanent pacemaker implantation. COMPLICATIONS: None PLAN: Patient will monitored on the telemetry unit. Prophylactic antibacterial be continued. Further recommendations depend upon the clinical course. If chest x-rays normal and if thresholds are stable, patient will be discharged home tomorrow.
[2020-04-28] MEDS: MIDODRINE 5 MG TAB PO SCH (16:42)
[2020-04-28] MEDS: SYMBICORT 80-4.5 MCG INHALER INHALATION SCH (19:50)
[2020-04-28] MEDS ORDERED: PRAVASTATIN SODIUM 40 MG TAB PO SCH (21:00)
[2020-04-28] MEDS ORDERED: PANTOPRAZOLE 40 MG TABLET PO SCH (21:00)
[2020-04-28] MEDS ORDERED: bisacodyL 5 MG TABLET.DR PO SCH (21:00)
[2020-04-28] MEDS ORDERED: LORATADINE 10 MG TAB PO SCH (21:00)
[2020-04-28] MEDS ORDERED: MONTELUKAST 10 MG TAB PO SCH (21:00)
[2020-04-28] MEDS: MEMANTINE 5 MG TAB PO SCH (21:20)
[2020-04-29] MEDS: SODIUM CHLORIDE 0.9% 1,000 ML IV SCH ×2 (01:57→01:58)
--- NOTE | 2020-04-29 07:56 | XR ---
EXAMINATION TYPE: XR chest 2V DATE OF EXAM: 04/29/2020 COMPARISON: 03/28/2020 HISTORY: Lead placement TECHNIQUE: Frontal and lateral views of the chest are obtained. FINDINGS: The lungs are clear consolidative, interstitial masslike opacity. There is no pleural effusion. 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 The heart size is normal. There is a 2-lead cardiac pacemaker. Left shoulder arthroplasty. IMPRESSION: No acute cardiopulmonary disease. The patient is status post 2-lead cardiac pacemaker placement..
[2020-04-29 08:00] VITALS: BP 142/73; TEMP 97.6
[2020-04-29] MEDS: SYMBICORT 80-4.5 MCG INHALER INHALATION SCH (08:31)
[2020-04-29] MEDS: IPRATROPIUM 0.5 MG/2.5 ML NEBU INHALATION SCH (08:31)
[2020-04-29] MEDS: MEMANTINE 5 MG TAB PO SCH (08:59)
[2020-04-29] MEDS: MIDODRINE 5 MG TAB PO SCH (08:59)
[2020-04-29] MEDS ORDERED: ESCITALOPRAM 20 MG TAB PO SCH ×2 (09:00)
[2020-04-29] MEDS ORDERED: MAGNESIUM OXIDE 400 MG PO SCH (09:00)
[2020-04-29] MEDS ORDERED: MAGNESIUM OXIDE 400 MG TAB PO SCH (09:00)
[2020-04-29] MEDS ORDERED: busPIRone HCl 5 MG TAB PO SCH (09:00)
[2020-04-29 09:52] VITALS: PULSE 57
--- NOTE | 2020-04-29 10:19 | P.DS ---
Providers Date of admission: 04/28/2020 Attending physician: Alan Alvarez Primary care physician: [facility] Course: This is a pleasant 75-year-old gentleman who follows with Dr. Sandhu in the office. Has a history of postural hypotension and syncopal episodes. He was recently evaluated by an event monitor that showed evidence of high degree AV block with long pauses and intermittent SVT as well as atrial flutter. He presented for elective pacemaker implantation. He underwent dual-chamber permanent pacemaker implantation yesterday by Dr. Alvarez. This morning upon examination the patient is resting comfortably in bed. Chest x-ray shows stable lead placement. Pacemaker interrogation this morning shows normal AAIR <-> DDDR function and device measurements. Vital signs have been stable. He does complain of some dyspnea on exertion which is stable and not new. Complains of some positional dizziness which is chronic. Denies any significant incisional discomfort. Dressing in place to LIC site intact with small amounts of drainage noted. Site is soft with no evidence of hematoma or ecchymosis. Left sling in place. Patient is aware of restrictions. PHYSICAL EXAMINATION: HEENT: Head is atraumatic, normocephalic. Pupils equal, round. Neck is supple. There is no elevated jugular venous pressure. HEART EXAMINATION: Heart sounds regular, S1 and S2 normal. No murmur or gallop heard. CHEST EXAMINATION: Lungs are clear to auscultation and precussion. No chest wall tenderness is noted on palpation or with deep breathing. LIC site with dressing intact, small amounts of drainage noted and marked. No evidence of ecchymosis or hematoma, site soft. ABDOMEN: Soft, nontender. Bowel sounds are heard. No organomegaly noted. EXTREMITIES: 2+ peripheral pulses with no evidence of peripheral edema and no calf tenderness noted. NEUROLOGIC patient is awake, alert and oriented x3. . Assessement #1 high-grade AV block with pauses, status post dual-chamber permanent pacemaker implantation #2 evidence of SVT and atrial flutter, paroxysmal, not currently anticoagulated #3 postural hypotension #4 syncope Plan Patient may be discharged home. He will be sent home on prophylactic Keflex. He will follow-up in the office next week with Dr. Sandhu as well as the device clinic for initial device interrogation and site check. Reinforce initial restrictions including no heavy lifting and no driving as well as no raising of the arms above shoulder level. Discussed with the patient the risk of stroke due to underlying paroxysmal atrial flutter as well as rationale behind anticoagulation as well as the risks of bleeding involved.. At this time he would like to wait and discuss this further with his and Dr. Sandhu. Plan - Discharge Summary Discharge Rx Participant: Yes New Discharge Prescriptions: New Cephalexin [Keflex] 500 mg PO Q6HR 1 Days #4 cap Acetaminophen [Tylenol] 325 mg PO Q4H PRN #30 tab PRN Reason: Pain/Discomfort Continue Omeprazole 20 mg PO HS Pravastatin Sodium [Pravachol] 40 mg PO HS Montelukast [Singulair] 10 mg PO HS Aspirin 81 mg PO HS Meclizine [Antivert] 25 mg PO BID PRN PRN Reason: dizziness Memantine [Namenda] 5 mg PO BID Escitalopram [Lexapro] 20 mg PO QAM Midodrine [ProAmatine] 5 mg PO AC-BID 30 Days #60 tab bisacodyL [Dulcolax] 10 mg PO HS Magnesium Oxide 400 mg PO DAILY busPIRone HCl [Buspar] 5 mg PO DAILY Cetirizine HCl [Zyrtec] 10 mg PO HS Fluticasone/Umeclidin/Vilanter [Trelegy Ellipta 200-62.5-25] 1 tab PO DAILY Discontinued Ibuprofen [Motrin] 400 mg PO DAILY PRN PRN Reason: Pain Magnesium 400 mg PO DAILY Escitalopram Oxalate [Lexapro] 20 mg PO DAILY Discharge Medication List Omeprazole 20 mg PO HS 03/08/14 [History] Pravastatin Sodium [Pravachol] 40 mg PO HS 06/20/15 [History] Aspirin 81 mg PO HS 05/11/18 [History] Montelukast [Singulair] 10 mg PO HS 05/11/18 [History] Meclizine [Antivert] 25 mg PO BID PRN 05/14/18 [History] Escitalopram [Lexapro] 20 mg PO QAM 03/28/20 [History] Memantine [Namenda] 5 mg PO BID 03/28/20 [History] Midodrine [ProAmatine] 5 mg PO AC-BID 30 Days #60 tab 03/30/20 [Rx] bisacodyL [Dulcolax] 10 mg PO HS 04/25/20 [History] Cetirizine HCl [Zyrtec] 10 mg PO HS 04/28/20 [History] Fluticasone/Umeclidin/Vilanter [Trelegy Ellipta 200-62.5-25] 1 tab PO DAILY 04/28/20 [History] Magnesium Oxide 400 mg PO DAILY 04/28/20 [History] busPIRone HCl [Buspar] 5 mg PO DAILY 04/28/20 [History] Acetaminophen [Tylenol] 325 mg PO Q4H PRN #30 tab 04/29/20 [Rx] Cephalexin [Keflex] 500 mg PO Q6HR 1 Days #4 cap 04/29/20 [Rx] Follow up Appointment(s)/Referral(s): Leonel Sandhu MD [STAFF PHYSICIAN] - 1 Week (Cardiology office will call you with follow up appointment date and time along with Device clinic appointment date and time.) Patient Instructions/Handouts: Pacemaker (DC)
--- NOTE | 2020-05-01 12:13 | P.CEMON ---
30 day event monitor note: Procedure details: Patient wore an event monitor from 03/30/2020 until 04/28/2020 for a total of 30 days. Findings: Patient had a total of 121 events. Patient had occasional PVCs noted. He had nonsustained VT with longest being 5 beats. Patient had numerous second-degree Type 1 and Type 2 blocks. Patient's longest pauses was 2.8 seconds which occurred at 5:40 in the morning. There was no significant atrial fibrillation noted. Conclusions: 1. Normal sinus rhythm 2. High degree A-V block with second-degree type II block. Clinical correlation recommended and may consider permanent pacemaker placement. 3. Longest pause of 2.8 seconds. 4. Occasional PVCs and brief nonsustained ventricular tachycardia lasting 5 beats. 5. No atrial fibrillation or atrial flutter noted.
== END 2020-04-29 11:47 | disposition home or self-care (01) ==
LOC: CATHEP 10:07 → 6NMEDSUR 12:45 → CATHEP 04-29 11:47
PROVIDERS: ATTEND Internal Medicine Cardiovascular Disease
DX: I48.92 Unspecified atrial flutter (principal); F03.90 Unspecified dementia, unspecified severity, without behavioral disturbance, psychotic disturbance, mood disturbance, and anxiety; I95.1 Orthostatic hypotension; I25.10 Atherosclerotic heart disease of native coronary artery without angina pectoris; E78.5 Hyperlipidemia, unspecified; M19.90 Unspecified osteoarthritis, unspecified site; Z87.891 Personal history of nicotine dependence; Z79.82 Long term (current) use of aspirin; Z79.899 Other long term (current) drug therapy; Z88.8 Allergy status to other drugs, medicaments and biological substances
CPT/HCPCS: 94640 ×4; 33208; 80048; 85025; 71046; C1769; C1898; C1785; J0690; J2001

== ENCOUNTER 2020-05-27 10:35 | Observation (INO) | payer MEDICARE ==
[2020-05-27] MEDS ORDERED: SODIUM CHLORIDE 0.9% 500 ML 500 ML IV STA (10:54)
--- NOTE | 2020-05-27 10:56 | ED ---
General Adult HPI - General Chief complaint: Shortness of Breath Stated complaint: SOB Time Seen by Provider: 05/27/20 10:40 Source: patient, EMS, RN notes reviewed, old records reviewed Mode of arrival: EMS Limitations: no limitations - History of Present Illness Initial comments: This is a 75-year-old male who presents to the emergency department with a recent history of a pacemaker placement. Patient states he woke up this morning short of breath and having right-sided chest pain with some symptoms in his arms. Patient states the pain is always there but it does seem to be a little worse with a deep breath or palpation. Patient denies any fever chills but states she started coughing last night as well. Patient denies any injury but he states he did lift up his 14 pound grand daughter yesterday and he wasn't supposed to lift anything over 5 pounds. Patient denies any abdominal pain patient denies any back pain. Patient denies any headache. Patient denies lightheadedness or dizziness per patient denies any swelling to the legs or calf tenderness. - Related Data Home Medications Medication Instructions Recorded Confirmed Omeprazole 20 mg PO HS 03/08/14 04/28/20 Pravastatin Sodium [Pravachol] 40 mg PO HS 06/20/15 04/28/20 Aspirin 81 mg PO HS 05/11/18 04/28/20 Montelukast [Singulair] 10 mg PO HS 05/11/18 04/28/20 Meclizine [Antivert] 25 mg PO BID PRN 05/14/18 04/25/20 Escitalopram [Lexapro] 20 mg PO QAM 03/28/20 04/28/20 Memantine [Namenda] 5 mg PO BID 03/28/20 04/28/20 bisacodyL [Dulcolax] 10 mg PO HS 04/25/20 04/28/20 Cetirizine HCl [Zyrtec] 10 mg PO HS 04/28/20 04/28/20 Fluticasone/Umeclidin/Vilanter 1 tab PO DAILY 04/28/20 04/28/20 [Trelegy Ellipta 200-62.5-25] Magnesium Oxide 400 mg PO DAILY 04/28/20 04/28/20 busPIRone HCl [Buspar] 5 mg PO DAILY 04/28/20 04/28/20 Previous Rx's Medication Instructions Recorded Midodrine [ProAmatine] 5 mg PO AC-BID 30 Days #60 tab 03/30/20 Acetaminophen [Tylenol] 325 mg PO Q4H PRN #30 tab 04/29/20 Cephalexin [Keflex] 500 mg PO Q6HR 1 Days #4 cap 04/29/20 Allergies Allergy/AdvReac Type Severity Reaction Status Date / Time atorvastatin calcium Allergy PAIN IN Verified 05/27/20 10:50 [From Lipitor] MUSCLES cyclobenzaprine HCl Allergy "BLISTERS" Verified 05/27/20 10:50 [From Flexeril] Review of Systems ROS Statement: Those systems with pertinent positive or pertinent negative responses have been documented in the HPI. ROS Other: All systems not noted in ROS Statement are negative. Past Medical History Past Medical History: Chest Pain / Angina, CVA/TIA, Eye Disorder, GERD/Reflux, Hearing Disorder / Deafness, Hyperlipidemia, Hypertension, Osteoarthritis (OA), Prostate Disorder Additional Past Medical History / Comment(s): HAS DOUBLE VISION WITHOUT GLASSES ON-POST TIA, vertigo, SOB w/exertion, recent hospitalization @[facility] for CP, dizziness History of Any Multi-Drug Resistant Organisms: None Reported Past Surgical History: Appendectomy, Back Surgery, Cardiac Ablation, Cholecystectomy, Heart Catheterization, Hernia Repair, Joint Replacement, Orthopedic Surgery, Pacemaker Additional Past Surgical History / Comment(s): LEFT LEG, SCREW REMOVAL-LEFT LEG, LEFT SHOULDER, CATARACTS -BOTH EYES, both knees replaced, fibula fracture, TURP, growth removed from inside right eyelid. [employer] dual chamber pacemaker Dr Alvarez 04/28/20 Past Anesthesia/Blood Transfusion Reactions: Previous Problems w/ Anesthesia Additional Past Anesthesia/Blood Transfusion Reaction / Comment(s): STATES " I HAD SEVERE PERSONALITY CHANGES WITH THE PAST 2 SURGERIES, I WAS NOT NICE TO MY AT ALL" Past Psychological History: Anxiety Smoking Status: Former smoker Past Alcohol Use History: None Reported Past Drug Use History: None Reported - Past Family History Mother Family Medical History: Myocardial Infarction ([place]) Father Additional Family Medical History / Comment(s): alcoholism, due to stomach issues. General Exam - General Exam Comments Initial Comments: GENERAL: Patient is well-developed and well-nourished. Patient is nontoxic and well- hydrated and is in mild distress. ENT: Neck is soft and supple. No significant lymphadenopathy is noted. Oropharynx is clear. Moist mucous membranes. Neck has full range of motion without eliciting any pain. EYES: The sclera were anicteric and conjunctiva were pink and moist. Extraocular movements were intact and pupils were equal round and reactive to light. Eyelids were unremarkable. PULMONARY: Unlabored respirations. Good breath sounds bilaterally. No audible rales rhonchi or wheezing was noted. CARDIOVASCULAR: There is a regular rate and rhythm without any murmurs gallops or rubs. ABDOMEN: Soft and nontender with normal bowel sounds. SKIN: Skin is clear with no lesions or rashes and otherwise unremarkable. NEUROLOGIC: Patient is alert and oriented x3. Cranial nerves II through XII are grossly intact. Motor and sensory are also intact. Normal speech, volume and content. Symmetrical smile. MUSCULOSKELETAL: Normal extremities with adequate strength and full range of motion. No lower extremity swelling or edema. No calf tenderness. LYMPHATICS: No significant lymphadenopathy is noted PSYCHIATRIC: Normal psychiatric evaluation. Limitations: no limitations Course Vital Signs 05/27/20 05/27/20 10:39 13:00 Temperature 97.7 F Pulse Rate 73 61 Respiratory 24 18 Rate Blood Pressure 142/86 114/65 O2 Sat by Pulse 98 95 Oximetry Medical Decision Making - Medical Decision Making EKG shows sinus rhythm at 63 bpm ME interval is 272 QRS is 92 QT interval 414 QTC is 423. EKG shows no ST segment elevation or depression. Chest x-ray shows no acute abnormality. Patient had a CT of the chest to rule out PE because the d-dimer was elevated. The CT showed no pulmonary embolus. I went back and talked patient he still did not feel back to his baseline. I spoke with Dr. Gill he agreed to admit the patient admitted the patient I wrote admitting orders. - Lab Data Result diagrams: 05/27/20 11:12 05/27/20 11:12 Lab Results 05/27/20 05/27/20 05/27/20 Range/Units 11:12 11:12 11:12 WBC 5.5 (3.8-10.6) k/uL RBC 5.18 (4.30-5.90) m/uL Hgb 15.5 (13.0-17.5) gm/dL Hct 45.5 (39.0-53.0) % MCV 87.8 (80.0-100.0) fL MCH 29.8 (25.0-35.0) pg MCHC 34.0 (31.0-37.0) g/dL RDW 13.5 (11.5-15.5) % Plt Count 168 (150-450) k/uL MPV 8.2 Neutrophils % 59 % Lymphocytes % 27 % Monocytes % 7 % Eosinophils % 4 % Basophils % 1 % Neutrophils # 3.3 (1.3-7.7) k/uL Lymphocytes # 1.5 (1.0-4.8) k/uL Monocytes # 0.4 (0-1.0) k/uL Eosinophils # 0.2 (0-0.7) k/uL Basophils # 0.1 (0-0.2) k/uL PT 10.3 (9.0-12.0) sec INR 1.0 (<1.2) APTT 23.2 (22.0-30.0) sec D-Dimer 0.89 H (<0.60) mg/L FEU Sodium 140 (137-145) mmol/L Potassium 4.2 (3.5-5.1) mmol/L Chloride 108 H (98-107) mmol/L Carbon Dioxide 23 (22-30) mmol/L Anion Gap 9 mmol/L BUN 20 (9-20) mg/dL Creatinine 0.78 (0.66-1.25) mg/dL Est GFR (CKD-EPI)AfAm >90 (>60 ml/min/1.73 sqM) Est GFR (CKD-EPI)NonAf 88 (>60 ml/min/1.73 sqM) Glucose 103 H (74-99) mg/dL Plasma Lactic Acid Nikolas (0.7-2.0) mmol/L Calcium 9.2 (8.4-10.2) mg/dL Magnesium 2.2 (1.6-2.3) mg/dL Total Bilirubin 0.6 (0.2-1.3) mg/dL AST 24 (17-59) U/L ALT 17 (4-49) U/L Alkaline Phosphatase 78 (38-126) U/L Troponin I (0.000-0.034) ng/mL NT-Pro-B Natriuret Pep pg/mL Total Protein 6.6 (6.3-8.2) g/dL Albumin 3.9 (3.5-5.0) g/dL Coronavirus (PCR) (Not Detectd) 05/27/20 05/27/20 05/27/20 Range/Units 11:12 11:12 11:12 WBC (3.8-10.6) k/uL RBC (4.30-5.90) m/uL Hgb (13.0-17.5) gm/dL Hct (39.0-53.0) % MCV (80.0-100.0) fL MCH (25.0-35.0) pg MCHC (31.0-37.0) g/dL RDW (11.5-15.5) % Plt Count (150-450) k/uL MPV Neutrophils % % Lymphocytes % % Monocytes % % Eosinophils % % Basophils % % Neutrophils # (1.3-7.7) k/uL Lymphocytes # (1.0-4.8) k/uL Monocytes # (0-1.0) k/uL Eosinophils # (0-0.7) k/uL Basophils # (0-0.2) k/uL PT (9.0-12.0) sec INR (<1.2) APTT (22.0-30.0) sec D-Dimer (<0.60) mg/L FEU Sodium (137-145) mmol/L Potassium (3.5-5.1) mmol/L Chloride (98-107) mmol/L Carbon Dioxide (22-30) mmol/L Anion Gap mmol/L BUN (9-20) mg/dL Creatinine (0.66-1.25) mg/dL Est GFR (CKD-EPI)AfAm (>60 ml/min/1.73 sqM) Est GFR (CKD-EPI)NonAf (>60 ml/min/1.73 sqM) Glucose (74-99) mg/dL Plasma Lactic Acid Nikolas 1.6 (0.7-2.0) mmol/L Calcium (8.4-10.2) mg/dL Magnesium (1.6-2.3) mg/dL Total Bilirubin (0.2-1.3) mg/dL AST (17-59) U/L ALT (4-49) U/L Alkaline Phosphatase (38-126) U/L Troponin I <0.012 (0.000-0.034) ng/mL NT-Pro-B Natriuret Pep 110 pg/mL Total Protein (6.3-8.2) g/dL Albumin (3.5-5.0) g/dL Coronavirus (PCR) (Not Detectd) 05/27/20 Range/Units 11:12 WBC (3.8-10.6) k/uL RBC (4.30-5.90) m/uL Hgb (13.0-17.5) gm/dL Hct (39.0-53.0) % MCV (80.0-100.0) fL MCH (25.0-35.0) pg MCHC (31.0-37.0) g/dL RDW (11.5-15.5) % Plt Count (150-450) k/uL MPV Neutrophils % % Lymphocytes % % Monocytes % % Eosinophils % % Basophils % % Neutrophils # (1.3-7.7) k/uL Lymphocytes # (1.0-4.8) k/uL Monocytes # (0-1.0) k/uL Eosinophils # (0-0.7) k/uL Basophils # (0-0.2) k/uL PT (9.0-12.0) sec INR (<1.2) APTT (22.0-30.0) sec D-Dimer (<0.60) mg/L FEU Sodium (137-145) mmol/L Potassium (3.5-5.1) mmol/L Chloride (98-107) mmol/L Carbon Dioxide (22-30) mmol/L Anion Gap mmol/L BUN (9-20) mg/dL Creatinine (0.66-1.25) mg/dL Est GFR (CKD-EPI)AfAm (>60 ml/min/1.73 sqM) Est GFR (CKD-EPI)NonAf (>60 ml/min/1.73 sqM) Glucose (74-99) mg/dL Plasma Lactic Acid Nikolas (0.7-2.0) mmol/L Calcium (8.4-10.2) mg/dL Magnesium (1.6-2.3) mg/dL Total Bilirubin (0.2-1.3) mg/dL AST (17-59) U/L ALT (4-49) U/L Alkaline Phosphatase (38-126) U/L Troponin I (0.000-0.034) ng/mL NT-Pro-B Natriuret Pep pg/mL Total Protein (6.3-8.2) g/dL Albumin (3.5-5.0) g/dL Coronavirus (PCR) Not Detected (Not Detectd) Disposition Clinical Impression: Chest pain, Dyspnea Disposition: ADMITTED IP TO THIS HOSP Referrals: Luis Gill MD [Primary Care Provider] - 1-2 days Time of Disposition: 13:52
[2020-05-27 11:21] LABS: Basophils # (A) 0.1 k/uL (0-0.2); Basophils % (A) 1 %; Eosinophils # (A) 0.2 k/uL (0-0.7); Eosinophils % (A) 4 %; HCT 45.5 % (39.0-53.0); HGB 15.5 gm/dL (13.0-17.5); Lymphocytes # (A) 1.5 k/uL (1.0-4.8); Lymphocytes % (A) 27 %; MCH 29.8 pg (25.0-35.0); MCV 87.8 fL (80.0-100.0); Mean Platelet Volume 8.2; Monocytes # (A) 0.4 k/uL (0-1.0); Monocytes % (A) 7 %; Neutrophils # (A) 3.3 k/uL (1.3-7.7); Neutrophils % (A) 59 %; Platelet Count 168 k/uL (150-450); RBC 5.18 m/uL (4.30-5.90); RDW 13.5 % (11.5-15.5); WBC 5.5 k/uL (3.8-10.6)
--- NOTE | 2020-05-27 11:29 | XR ---
EXAMINATION TYPE: XR chest 2V DATE OF EXAM: 05/27/2020 COMPARISON: 04/29/2020 INDICATION: Difficulty breathing TECHNIQUE: Frontal and lateral views of the chest are obtained. FINDINGS: The heart size is normal. The pulmonary vasculature is normal. The lungs are clear. Was maker made overlies left chest. Small amount of air appears to be within loops of bowel under the right diaphragm. IMPRESSION: 1. No acute pulmonary process.
[2020-05-27 11:36] LABS: ALT 17 U/L (4-49); AST 24 U/L (17-59); African American GFR (CKD) >90 (>60 ml/min/1.73 sqM); Albumin 3.9 g/dL (3.5-5.0); Alkaline Phosphatase 78 U/L (38-126); Anion Gap 9 mmol/L; Blood Urea Nitrogen 20 mg/dL (9-20); Calcium 9.2 mg/dL (8.4-10.2); Carbon Dioxide 23 mmol/L (22-30); Chloride 108 mmol/L (98-107); Glucose 103 mg/dL (74-99); Magnesium 2.2 mg/dL (1.6-2.3); Non-African American GFR(CKD) 88 (>60 ml/min/1.73 sqM); Potassium 4.2 mmol/L (3.5-5.1); Sodium 140 mmol/L (137-145); Total Bilirubin 0.6 mg/dL (0.2-1.3); Total Protein 6.6 g/dL (6.3-8.2)
[2020-05-27 11:40] LABS: Partial Thromboplastin Time 23.2 sec (22.0-30.0); Prothrombin Time 10.3 sec (9.0-12.0)
[2020-05-27 11:46] LABS: D-Dimer 0.89 mg/L FEU (<0.60)
--- NOTE | 2020-05-27 13:27 | CT ---
CT CHEST FOR PULMONARY EMBOLISM. EXAMINATION TYPE: CT chest angio for PE DATE OF EXAM: 05/27/2020 INDICATION: elevated d-dimer, recent pacemaker placement CT DLP: 929.3 mGycm, Automated exposure control for dose reduction was used. CONTRAST: Patient injected with 100 mL of Isovue 370. COMPARISON: None TECHNIQUE: CT of the chest is performed on a spiral scan at 2 mm thick sections. Study is performed with intravenous contrast timed for evaluation for pulmonary embolism. This will limit additional po rtions of the evaluation. 3-D MIP images reconstructed by the technologist are reviewed on the compu ter in the coronal and sagittal planes. FINDINGS: No persistent filling defects are evident to suggest an acute pulmonary embolism. No mediastinal or hilar adenopathy enlarged by CT criteria is evident. The ascending aorta diameter at the level of the main pulmonary artery is 3.9 cm. The main pulmonary artery diameter at the bifur cation is 2.7 cm. Very minimal compressive atelectasis within the dependent portions of the lung bases may be present. Limited CT section through the upper abdomen. Pancreas is slightly atrophic. Gallbladder surgically a bsent. IMPRESSIONS: 1. No acute pulmonary embolism. 2. Minimal compressive atelectasis within the dependent lung bases. 3. Mild pancreas atrophy
[2020-05-27] MEDS ORDERED: NITROGLYCERIN SL TABS 0.4 MG TAB SUBLINGUAL PRN (13:57)
[2020-05-27] MEDS: NITROGLYCERIN OINT 1 INCH/GM PACKET TOPICAL SCH (19:39)
[2020-05-27] MEDS ORDERED: ACETAMINOPHEN TAB 325 MG TAB PO PRN (22:41)
[2020-05-27] MEDS ORDERED: MECLIZINE 25 MG TAB PO PRN (22:41)
[2020-05-28] MEDS: NITROGLYCERIN OINT 1 INCH/GM PACKET TOPICAL SCH ×4 (01:23→17:13)
[2020-05-28 03:00] LABS: Cholesterol 166 mg/dL (<200); HDL Cholesterol 39 mg/dL (40-60); LDL Cholesterol,Calculated 116 mg/dL (0-99); Triglycerides 53 mg/dL (<150)
[2020-05-28] MEDS: MIDODRINE 5 MG TAB PO SCH ×2 (07:51→17:31)
[2020-05-28] MEDS: ASPIRIN 325 MG TAB PO SCH (07:51)
[2020-05-28] MEDS: ESCITALOPRAM 20 MG TAB PO SCH (07:51)
[2020-05-28] MEDS: MEMANTINE 5 MG TAB PO SCH ×2 (07:51→22:41)
[2020-05-28] MEDS: MAGNESIUM OXIDE 400 MG TAB PO SCH (07:51)
[2020-05-28] MEDS: IPRATROPIUM 0.5 MG/2.5 ML NEBU INHALATION SCH ×4 (08:28→20:25)
--- NOTE | 2020-05-28 08:59 | P.CRDCN ---
History of Present Illness Consult date: 05/28/20 Chief complaint: Chest discomfort/shortness of breath History of present illness: This is a 75-year-old gentleman with a past medical history significant for permanent pacemaker implantation as well as hypotension require midodrine who requested to see here on the observation unit. In April 2020 he did have an episode of syncope where at that point an event monitor was advised and that revealed high degree AV block with a long sinus pause. At that point the patient underwent permanent pacemaker implantation which was uneventful and he was discharged home in stable medical condition. Yesterday he presented to the emergency department complaining of multiple symptoms. She described right sided chest discomfort he think it started after he fell and lost his consciousness before the pacemaker was placed. The discomfort seems to be non- cardiac. Beside that he describes increasing in the shortness of breath. He denies any symptoms of syncope but he still have dizziness and lightheadedness with standing up. No clear-cut evidence of loss of consciousness or syncope or presyncope. No feeling of heart racing or fluttering. He underwent an extensive workup since he presented to the hospital including an EKG showing sinus rhythm without any ischemic ST or T-wave abnormalities and also cardiac enzymes came in to be unremarkable. The chest x-ray did not show any acute abnormalities. Computed tomography scan of the chest came in to be unremarkable for pulmonary embolism. In 2018 he underwent heart catheterization and that showed mild nonobstructive coronary artery disease. An echo recently showed normal left ventricular systolic function with evidence of aortic sclerosis as well as mitral annular calcifications but beside that no significant valvular abnormalities. Past Medical History Past Medical History: Chest Pain / Angina, CVA/TIA, Eye Disorder, GERD/Reflux, Hearing Disorder / Deafness, Hyperlipidemia, Hypertension, Osteoarthritis (OA), Prostate Disorder Additional Past Medical History / Comment(s): HAS DOUBLE VISION WITHOUT GLASSES ON-POST TIA, vertigo, SOB w/exertion, recent hospitalization @[facility] for CP, dizziness History of Any Multi-Drug Resistant Organisms: None Reported Past Surgical History: Appendectomy, Back Surgery, Cardiac Ablation, Cholecystectomy, Heart Catheterization, Hernia Repair, Joint Replacement, Orthopedic Surgery, Pacemaker Additional Past Surgical History / Comment(s): LEFT LEG, SCREW REMOVAL-LEFT LEG, LEFT SHOULDER, CATARACTS -BOTH EYES, both knees replaced, fibula fracture, TURP, growth removed from inside right eyelid. [employer] dual chamber pacemaker Dr Alvarez 04/28/20 Past Anesthesia/Blood Transfusion Reactions: Previous Problems w/ Anesthesia Additional Past Anesthesia/Blood Transfusion Reaction / Comment(s): STATES " I HAD SEVERE PERSONALITY CHANGES WITH THE PAST 2 SURGERIES, I WAS NOT NICE TO MY AT ALL" Type of Cardiac Device: Permanent Pacemaker Device Placement Date:: approx 30 days ago Past Psychological History: Anxiety Additional Psychological History / Comment(s): STATES IS NOT SURE WHY HE IS ON LEXAPRO Smoking Status: Former smoker Past Alcohol Use History: None Reported Additional Past Alcohol Use History / Comment(s): is alcoholic. pt states last drink was in 1979. Past Drug Use History: None Reported - Past Family History Mother Family Medical History: Myocardial Infarction ([place]) Father Additional Family Medical History / Comment(s): alcoholism, due to stomach issues. Medications and Allergies Home Medications Medication Instructions Recorded Confirmed Type Omeprazole 20 mg PO HS 03/08/14 05/27/20 History Pravastatin Sodium [Pravachol] 40 mg PO HS 06/20/15 05/27/20 History Aspirin 81 mg PO HS 05/11/18 05/27/20 History Montelukast [Singulair] 10 mg PO HS 05/11/18 05/27/20 History Meclizine [Antivert] 25 mg PO BID PRN 05/14/18 05/27/20 History Escitalopram [Lexapro] 20 mg PO QAM 03/28/20 05/27/20 History Memantine [Namenda] 5 mg PO BID 03/28/20 05/27/20 History Midodrine [ProAmatine] 5 mg PO AC-BID 30 Days #60 tab 03/30/20 05/27/20 Rx bisacodyL [Dulcolax] 10 mg PO HS 04/25/20 05/27/20 History Cetirizine HCl [Zyrtec] 10 mg PO HS 04/28/20 05/27/20 History Fluticasone/Umeclidin/Vilanter 1 tab PO DAILY 04/28/20 05/27/20 History [Trelegy Ellipta 200-62.5-25] Magnesium Oxide 400 mg PO DAILY 04/28/20 05/27/20 History Acetaminophen [Tylenol] 325 mg PO Q4H PRN #30 tab 04/29/20 05/27/20 Rx Donepezil [Aricept] 5 mg PO HS 05/27/20 05/27/20 History Allergies Allergy/AdvReac Type Severity Reaction Status Date / Time cyclobenzaprine HCl Allergy "BLISTERS" Verified 05/27/20 14:06 [From Flexeril] atorvastatin calcium AdvReac PAIN IN Verified 05/27/20 14:06 [From Lipitor] MUSCLES Physical Exam Vitals: Vital Signs Temp Pulse Pulse Resp BP BP Pulse Ox 05/28/20 08:40 80 05/28/20 08:28 78 05/28/20 07:00 97.5 F L 63 17 122/68 93 L 05/28/20 00:49 98.0 F 58 L 18 113/66 95 05/27/20 19:00 98.1 F 60 18 118/59 95 05/27/20 17:00 60 20 132/68 96 05/27/20 15:00 59 L 20 147/74 98 05/27/20 13:00 61 18 114/65 95 05/27/20 10:39 97.7 F 73 24 142/86 98 Intake and Output 05/27/20 05/28/20 05/28/20 22:59 06:59 14:59 Output Total 700 Balance -700 Output: Urine 700 Other: # Voids 2 Weight 106.594 kg - Constitutional General appearance: no acute distress - Respiratory Respiratory: bilateral: CTA - Cardiovascular Rhythm: regular Heart sounds: normal: S1, S2 Results 05/27/20 11:12 05/27/20 11:12 Cardiac Enzymes 05/27/20 05/27/20 05/27/20 Range/Units 11:12 11:12 14:50 AST 24 (17-59) U/L Troponin I <0.012 <0.012 (0.000-0.034) ng/mL 05/27/20 Range/Units Unknown AST (17-59) U/L Troponin I <0.012 (0.000-0.034) ng/mL Coagulation 05/27/20 Range/Units 11:12 PT 10.3 (9.0-12.0) sec APTT 23.2 (22.0-30.0) sec Lipids 05/27/20 Range/Units 11:12 Triglycerides 53 (<150) mg/dL Cholesterol 166 (<200) mg/dL HDL Cholesterol 39 L (40-60) mg/dL CBC 05/27/20 Range/Units 11:12 WBC 5.5 (3.8-10.6) k/uL RBC 5.18 (4.30-5.90) m/uL Hgb 15.5 (13.0-17.5) gm/dL Hct 45.5 (39.0-53.0) % Plt Count 168 (150-450) k/uL Comprehensive Metabolic Panel 05/27/20 Range/Units 11:12 Sodium 140 (137-145) mmol/L Potassium 4.2 (3.5-5.1) mmol/L Chloride 108 H (98-107) mmol/L Carbon Dioxide 23 (22-30) mmol/L BUN 20 (9-20) mg/dL Creatinine 0.78 (0.66-1.25) mg/dL Glucose 103 H (74-99) mg/dL Calcium 9.2 (8.4-10.2) mg/dL AST 24 (17-59) U/L ALT 17 (4-49) U/L Alkaline Phosphatase 78 (38-126) U/L Total Protein 6.6 (6.3-8.2) g/dL Albumin 3.9 (3.5-5.0) g/dL Current Medications Generic Name Dose Route Start Last Admin Trade Name Freq PRN Reason Stop Dose Admin Acetaminophen 325 mg 05/27/20 22:41 Acetaminophen Tab 325 Mg Tab PO Q4H PRN Pain/Discomfort Aspirin 325 mg 05/28/20 09:00 05/28/20 07:51 Aspirin 325 Mg Tab PO 325 mg DAILY [facility] Administration Bisacodyl 10 mg 05/28/20 21:00 Bisacodyl 5 Mg Tablet. PO [facility] Budesonide/Formoterol Fumarate 2 puff 05/28/20 09:00 Symbicort 80-4.5 Mcg Inhaler INHALATION BID [facility] Donepezil HCl 5 mg 05/28/20 21:00 Donepezil 5 Mg Tab PO HS [facility] Escitalopram Oxalate 20 mg 05/28/20 09:00 05/28/20 07:51 Escitalopram 20 Mg Tab PO 20 mg QAM [facility] Administration Ipratropium [place] 0.5 mg 05/28/20 08:00 05/28/20 08:28 Ipratropium 0.5 Mg/2.5 Ml Nebu INHALATION 0.5 mg RT-QID [facility] Administration Loratadine 10 mg 05/28/20 21:00 Loratadine 10 Mg Tab PO HS [facility] Magnesium Oxide 400 mg 05/28/20 09:00 05/28/20 07:51 Magnesium Oxide 400 Mg Tab PO 400 mg DAILY [facility] Administration Meclizine HCl 25 mg 05/27/20 22:41 Meclizine 25 Mg Tab PO BID PRN dizziness Memantine 5 mg 05/28/20 09:00 05/28/20 07:51 Memantine 5 Mg Tab PO 5 mg BID [facility] Administration Midodrine 5 mg 05/28/20 07:30 05/28/20 07:51 Midodrine 5 Mg Tab PO 5 mg AC-BID [facility] Administration Montelukast Sodium 10 mg 05/28/20 21:00 Montelukast 10 Mg Tab PO HS [facility] Nitroglycerin 0.4 mg 05/27/20 13:57 Nitroglycerin Sl Tabs 0.4 Mg Tab SUBLINGUAL Q5M PRN Chest Pain Nitroglycerin 1 inch 05/27/20 18:00 05/28/20 06:04 Nitroglycerin Oint 1 Inch/Gm Packet TOPICAL Not Given Q6HR [facility] Pantoprazole Sodium 40 mg 05/28/20 21:00 Pantoprazole 40 Mg Tablet PO AC-BRKFST [facility] Pravastatin Sodium 40 mg 05/28/20 21:00 Pravastatin Sodium 40 Mg Tab PO HS [facility] Intake and Output 05/27/20 05/28/20 05/28/20 22:59 06:59 14:59 Output Total 700 Balance -700 Output: Urine 700 Other: # Voids 2 Weight 106.594 kg 05/27/20 11:12 05/27/20 11:12 Assessment and Plan Assessment: Assessment #1 noncardiac chest pain #2 shortness of breath likely to be noncardiac as well #3 status post permanent pacemaker #4 hypotension require midodrine Plan #1 the patient is not on any blood pressure medication #2 I would advise interrogation of the device #3 follow-up with the patient
[2020-05-28] MEDS ORDERED: SYMBICORT 80-4.5 MCG INHALER INHALATION SCH ×2 (09:00→11:46)
--- NOTE | 2020-05-28 10:33 | HP ---
HISTORY AND PHYSICAL DATE OF SERVICE: 05/27/2020 I saw him in the emergency room. A 75-year-old white male with past medical history of hypotension requiring midodrine, admitted for near syncope, dizziness, extremity numbness and atypical chest pain. He says he is worried about this pacemaker. Had some atypical chest pain, worsening cough and shortness of breath. He has dizziness, lightheadedness with standing up. No clear-cut loss of consciousness or syncope. No palpitations. EKG does not show ischemic changes. Chest x-ray is negative. CT of the chest shows no PE. PAST MEDICAL HISTORY: Chest pain, angina, CVA, TIA, GERD, hearing disorder, deafness, dyslipidemia, hypertension, osteoarthritis, prostate disorder, double vision, vertigo. SURGERIES: Appendectomy, back surgery, cardiac ablation, cholecystectomy, heart catheterization, hernia repair, joint replacement orthopedic surgery, pacemaker, screw removal left leg, shoulder, cataracts both eyes, knee replacement, permanent pacemaker. SOCIAL HISTORY: Former smoker. He used to drink heavy, but his last drink was 1979. FAMILY HISTORY: Mother with myocardial infarction. Father with alcoholism. HOME MEDICATIONS: Omeprazole 20 daily, pravastatin 40 daily, aspirin 81 daily, Singulair 10 daily, Antivert 25 b.i.d., Lexapro 20 daily, Namenda 5 mg b.i.d., midodrine 5 mg before meals b.i.d., Dulcolax 10 mg daily, Zyrtec 10 mg daily, Trelegy 1 puff daily, Mag oxide 400 mg daily, Tylenol 350 q.4h p.r.n., Aricept 5 daily. ALLERGIES: FLEXERIL, LIPITOR. PHYSICAL EXAMINATION: VITAL SIGNS: Temperature 97 to 98, pulse 80s to 60s, respiratory 16 to 24, blood pressure is 118 to 142, O2 is 93 to 98. CARDIOVASCULAR: S1-S2. LUNGS: Clear. He has a congested cough. CARDIOVASCULAR: S1, S2. HEMATOLOGY: 2+ edema. Some mild stasis changes. ABDOMEN: Distended, obesity. LABORATORY DATA: White count 5.5, hemoglobin 15.5, sodium 140, potassium 4.2, BUN 20, creatinine 0.78. His weight is 106 kg. ASSESSMENT: Atypical chest pain, shortness of breath secondary to possible tracheobronchitis, status post permanent pacemaker, possible tracheobronchitis. PLAN: Prognosis guarded. Follow up in the next 24 to 48 hours. Get Neurology to see him for extremity numbness and possible TIA. Get Cardiology to see him to rule out myocardial infarction, interrogate his pacemaker device. Possible blood pressure medicine will be needed. Unclear etiology of what is going on at this time; possibly a TIA. Shortness of breath, unclear etiology; possible tracheobronchitis. CT of the chest shows no PE as mentioned above. Prognosis guarded. MMODL / IJN: [id number] /
[2020-05-28] MEDS: AZITHROMYCIN 500 MG in SODIUM CHLORIDE 0.9% 250 ML IVPB SCH (11:02)
[2020-05-28] MEDS: SYMBICORT 80-4.5 MCG INHALER INHALATION SCH ×2 (11:54→20:25)
--- NOTE | 2020-05-28 15:40 | P.CNNES ---
History of Present Illness Consult date: 05/28/20 History of Present Illness: The patient is a 75-year-old male who is seen in neurologic consult on May 28, 2020 via teleneurology. The patient's is present in the room at the time of the evaluation. The patient reports that he'll awoke early the other morning. He was very short of breath and was coughing. He sat up and felt very dizzy. He then was sitting in his recliner, with his feet elevated and continued to feel very short of breath. He said that he had numbness in both of his hands and feet. According to his , the patient usually only gets numbness in his hands and feet when he stands up and becomes lightheaded. He has not had this sensation while seated. He also reportedly had some difficulty speaking. The patient states that when these episodes have occurred in the past, he is unable to move. The symptoms reportedly lasted for 2-3 hours, on this occasion. The patient recently had a pacemaker placed. This procedure was done because of an episode of syncope, with head injury. The patient apparently had an abrasion to the back of his head. He is not really sure whether he lost consciousness or not. He did not receive any type of repair or sutures to his head. It is believed that the patient potentially had a concussion. Subsequent to this, the patient wore a Holter monitor for 30 days and reportedly was found to have heart block. Since the fall and injury to his head, the patient reports pain in the posterior aspect of his head. He says the pain is quite intense at times. His scalp and muscles are painful to touch. This pain radiates into the right side of the patient's neck. He has marked limitation of range of motion of his neck. Pain then radiates down his right arm. There apparently has been no investigation or treatment of this headache and neck pain. 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 [employer] dual chamber pacemaker Dr Alvarez 04/28/20 Past Anesthesia/Blood Transfusion Reactions: Previous Problems w/ Anesthesia Additional Past Anesthesia/Blood Transfusion Reaction / Comment(s): STATES " I HAD SEVERE PERSONALITY CHANGES WITH THE PAST 2 SURGERIES, I WAS NOT NICE TO MY AT ALL" Type of Cardiac Device: Permanent Pacemaker Device Placement Date:: approx 30 days ago Past Psychological History: Anxiety Additional Psychological History / Comment(s): STATES IS NOT SURE WHY HE IS ON LEXAPRO Smoking Status: Former smoker Past Alcohol Use History: None Reported Additional Past Alcohol Use History / Comment(s): is alcoholic. pt states last drink was in 1979. Past Drug Use History: None Reported - Past Family History Mother Family Medical History: Myocardial Infarction ([place]) Father Additional Family Medical History / Comment(s): alcoholism, due to stom ach issues. Medications and Allergies Home Medications Medication Instructions Recorded Confirmed Type Omeprazole 20 mg PO HS 03/08/14 05/27/20 History Pravastatin Sodium [Pravachol] 40 mg PO HS 06/20/15 05/27/20 History Aspirin 81 mg PO HS 05/11/18 05/27/20 History Montelukast [Singulair] 10 mg PO HS 05/11/18 05/27/20 History Meclizine [Antivert] 25 mg PO BID PRN 05/14/18 05/27/20 History Escitalopram [Lexapro] 20 mg PO QAM 03/28/20 05/27/20 History Memantine [Namenda] 5 mg PO BID 03/28/20 05/27/20 History Midodrine [ProAmatine] 5 mg PO AC-BID 30 Days #60 tab 03/30/20 05/27/20 Rx bisacodyL [Dulcolax] 10 mg PO HS 04/25/20 05/27/20 History Cetirizine HCl [Zyrtec] 10 mg PO HS 04/28/20 05/27/20 History Fluticasone/Umeclidin/Vilanter 1 tab PO DAILY 04/28/20 05/27/20 History [Trelegy Ellipta 200-62.5-25] Magnesium Oxide 400 mg PO DAILY 04/28/20 05/27/20 History Acetaminophen [Tylenol] 325 mg PO Q4H PRN #30 tab 04/29/20 05/27/20 Rx Donepezil [Aricept] 5 mg PO HS 05/27/20 05/27/20 History Allergies Allergy/AdvReac Type Severity Reaction Status Date / Time cyclobenzaprine HCl Allergy "BLISTERS" Verified 05/27/20 14:06 [From Flexeril] atorvastatin calcium AdvReac PAIN IN Verified 05/27/20 14:06 [From Lipitor] MUSCLES Physical Examination - Vital Signs Vital Signs: Vital Signs Temp Pulse Pulse Resp BP BP Pulse Ox 05/28/20 14:13 97.5 F L 61 18 144/60 93 L 05/28/20 11:53 76 05/28/20 11:42 74 05/28/20 08:40 80 05/28/20 08:28 78 05/28/20 08:00 63 17 05/28/20 07:00 97.5 F L 63 17 122/68 93 L 05/28/20 00:49 98.0 F 58 L 18 113/66 95 05/27/20 19:00 98.1 F 60 18 118/59 95 05/27/20 17:00 60 20 132/68 96 Intake and Output 05/28/20 05/28/20 05/28/20 06:59 14:59 22:59 Intake Total 300 Output Total 700 Balance -700 300 Intake: Oral 300 Output: Urine 700 Other: Voiding Method Toilet Urinal # Voids 2 2 Gen.: The patient is reclining in the bed. He is well-nourished, well-developed and in no acute distress. HEENT: Head is atraumatic, normocephalic. Fundus not visualized. There is no scleral icterus. There is tenderness to palpation of the posterior aspect of the right side of the head. Mucous membranes are moist Neck: Without carotid bruits. There is tenderness to palpation of the para spinal musculature, right sided. There is marked decreased range of motion of the neck. Heart: Regular rate and rhythm Lungs: Clear to auscultation Extremities: Without edema Neurological examination Mental status: The patient is awake, alert and oriented 3. His speech is clear. Cranial nerves: Pupils are equal at 3 mm and reactive. There is generalized decrease in peripheral vision. Extraocular movements are intact. There is no nystagmus. Facial sensation is intact. There is no facial asymmetry. Hearing is diminished bilaterally. Uvula and palate are midline. Shoulder shrug is symmetric. Tongue protrudes midline. Motor: Bilateral upper extremity strength is 5/5 with the exception of the right triceps at 4/5, secondary to pain. Lower extremity strength is intact and symmetric. Coordination: Finger to nose and heel to dao testing are intact. There is a bilateral, mild intention tremor. Deep tendon reflexes: 2+/4+ in the upper extremities. Patellar reflexes 2-3+/4+ bilaterally. Achilles reflexes 2+/4+. Plantar responses are flexor bilaterally. Gait not assessed Results - Laboratory Findings CBC and BMP: 05/27/20 11:12 05/27/20 11:12 Abnormal Lab Findings: Abnormal Labs 05/27/20 05/27/20 05/27/20 11:12 11:12 11:12 D-Dimer 0.89 H Chloride 108 H Glucose 103 H LDL Cholesterol, Calc 116 H HDL Cholesterol 39 L Assessment and Plan Assessment: 1. No signs, symptoms or neurologic findings consistent stroke-consider distal numbness and tingling secondary to hypoxia versus anxiety versus compression neuropathy 2. Reported history of posterior headache with radiation into the neck and right arm, following fall and head injury-consider neck injury/fracture and/or radiculopathy 3. Reported orthostatic symptoms Plan: 1. Orthostatic vitals 2. Pacemaker should be interrogated 3. Consider imaging of the cervical spine-this may be done as an outpatient 4. Consider follow up with neurology as outpatient, for further evaluation of head and neck pain Time with Patient: Greater than 30 (spent 40 minutes with patient via teleneurology)
[2020-05-28] MEDS ORDERED: bisacodyL 5 MG TABLET.DR PO SCH (21:00)
[2020-05-28] MEDS ORDERED: ASPIRIN 81 MG PO SCH (21:00)
[2020-05-28] MEDS ORDERED: DONEPEZIL 5 MG TAB PO SCH (21:00)
[2020-05-28] MEDS ORDERED: LORATADINE 10 MG TAB PO SCH (21:00)
[2020-05-28] MEDS ORDERED: MONTELUKAST 10 MG TAB PO SCH (21:00)
[2020-05-28] MEDS ORDERED: PRAVASTATIN SODIUM 40 MG TAB PO SCH (21:00)
[2020-05-28] MEDS: PANTOPRAZOLE 40 MG TABLET PO SCH (22:42)
[2020-05-29] MEDS: NITROGLYCERIN OINT 1 INCH/GM PACKET TOPICAL SCH ×3 (00:19→13:34)
[2020-05-29 08:01] VITALS: RESP 18
[2020-05-29] MEDS: IPRATROPIUM 0.5 MG/2.5 ML NEBU INHALATION SCH ×3 (08:05→17:12)
[2020-05-29] MEDS: SYMBICORT 80-4.5 MCG INHALER INHALATION SCH (08:07)
[2020-05-29] MEDS: MIDODRINE 5 MG TAB PO SCH (08:48)
[2020-05-29] MEDS: MEMANTINE 5 MG TAB PO SCH (08:49)
[2020-05-29] MEDS: ESCITALOPRAM 20 MG TAB PO SCH (08:49)
[2020-05-29] MEDS: MAGNESIUM OXIDE 400 MG TAB PO SCH (08:49)
[2020-05-29] MEDS: ASPIRIN 325 MG TAB PO SCH (08:49)
[2020-05-29] MEDS: PANTOPRAZOLE 40 MG TABLET PO SCH (08:49)
[2020-05-29] MEDS: AZITHROMYCIN 500 MG in SODIUM CHLORIDE 0.9% 250 ML IVPB SCH (08:50)
--- NOTE | 2020-05-29 12:58 | P.PN ---
Subjective Progress Note Date: 05/29/20 HISTORY OF PRESENT ILLNESS: This is a 75-year-old male who follows with Dr. Sandhu in the office. Patient recently underwent pacemaker implantation in April [address] Kim shankar econdary to syncope and high grade AV block. Patient examined this morning at the bedside. Patient states he originally came to the hospital because he felt like he was going to pass out. He states that he gets a significant pain in the back of his head and it goes down into his right arm. He denies chest pain or pressure. Denies shortness of breath. Denies dizziness or lightheadedness. Blood pressure 148/78. Heart rate in the 60s. He is on room air with oxygen saturations greater than 92%. He is afebrile. Orthostatic blood pressures done yesterday revealed blood pressure 151/76 sitting. 129/72 supine and 119/73 standing. PHYSICAL EXAM: VITAL SIGNS: Reviewed. GENERAL: Well-developed in no acute distress. NECK: Supple. No JVD or thyromegaly LUNGS: Respirations even and unlabored. Lungs essentially clear to auscultation bilaterally. HEART: Regular rate and rhythm. S1 and S2 heard. EXTREMITIES: Normal range of motion. No clubbing or cyanosis. Peripheral p ulses intact. No lower extremity edema ASSESSMENT: Chest pain, troponin negative x 3 Recent pacemaker implantation in April 2020 secondary to syncope and high grade AV block History of hypotension requiring midodrine Hypertension Hyperlipidemia PLAN: Neurology following. Recommendations for outpatient cervical spine imaging noted Device interrogation reviewed and unremarkable Stable from a cardiac standpoint. We will sign off. Please reconsult if needed Patient to follow up with Dr. Sandhu outpatient Nurse practitioner note has been reviewed by physician. Signing provider agrees with the documented findings, assessment, and plan of care. Objective - Vital Signs Vital signs: Vital Signs Temp 97.6 F 05/29/20 07:27 Pulse 76 05/29/20 08:20 Resp 18 05/29/20 07:27 BP 148/78 05/29/20 07:27 Pulse Ox 97 05/29/20 08:08 Intake & Output 05/28/20 05/29/20 05/29/20 18:59 06:59 18:59 Intake Total 540 240 Balance 540 240 Intake: Oral 540 240 Other: Voiding Method Toilet Toilet Urinal Urinal # Voids 2 1 - Labs CBC & Chem 7: 05/27/20 11:12 05/27/20 11:12
[2020-05-29 14:32] VITALS: BP 156/73; TEMP 98
--- NOTE | 2020-05-29 15:50 | CT ---
EXAMINATION TYPE: CT cervical spine wo con DATE OF EXAM: 05/29/2020 COMPARISON: None HISTORY: 75-year-old male Headache and decreased range of motion in neck. TECHNIQUE: Contiguous axial scanning of the cervical spine without IV contrast. Coronal and sagittal reconstructions performed. CT DLP: 507.2 mGycm Automated exposure control for dose reduction was used. FINDINGS: Left-sided pacemaker leads. Reversal of the normal cervical lordosis. Grade 1 anterolisthesis C4-C5. Otherwise, alignment is main tained. No craniocervical junction of the body, predental space widening, or prevertebral soft tissue swellin g. Degenerative changes at the cranio-occipital articulations as well as the C1 dens articulation. Disc osteophyte complex at C5-C6 likely contiguous to a mild narrowing of the spinal canal. Scattered mild to moderate degenerative disc disease and endplate spondylosis throughout. Multilevel hypertrophic facet and uncovertebral joint arthropathy. There is bony ankylosis across the left-sided facet joints from C2-C4 levels. At C2-C3, moderate to severe left neuroforaminal stenosis. At C3-C4, moderate to severe left and moderate right neuroforaminal stenosis. At C4-C5, severe right and [id number] left neuroforaminal stenosis. At C5-C6, moderate to severe bilateral neural foraminal stenosis. At C6/C7, moderate left neuroforaminal stenosis. At C7-T1, mild left neuroforaminal stenosis. No acute fracture of the cervical spine. IMPRESSION: 1. [id number] DEGENERATIVE DISC DISEASE. DISC OSTEOPHYTE COMPLEX MAY CONTRIBUTE TO A MILD SPINA L CANAL STENOSIS AT C5-C6. 2. MULTILEVEL HYPERTROPHIC FACET AND UNCOVERTEBRAL JOINT ARTHROPATHY. 3. MODERATE TO SEVERE NEUROFORAMINAL STENOSES THROUGHOUT. 4. DEGENERATIVE GRADE 1 ANTEROLISTHESIS AT C4-C5. ADDITIONAL DEGENERATIVE CHANGES AT THE CRANIO-OCCIP ITAL ARTICULATION.
[2020-05-29 17:13] VITALS: PULSE 72
[2020-05-30] MEDS ORDERED: ASPIRIN 81 MG PO SCH (09:00)
== END 2020-05-29 18:24 | disposition home or self-care (01) ==
LOC: EC 10:35 → 6NMEDSUR 14:13
PROVIDERS: ADMIT Family Medicine; ATTEND Family Medicine
DX: R07.89 Other chest pain (principal); R06.02 Shortness of breath; R55 Syncope and collapse; R42 Dizziness and giddiness; R05 Cough; R20.0 Anesthesia of skin; R51.9 Headache, unspecified; M54.2 Cervicalgia; M79.602 Pain in left arm; M79.601 Pain in right arm; R06.00 Dyspnea, unspecified; R20.2 Paresthesia of skin; K21.9 Gastro-esophageal reflux disease without esophagitis; E78.5 Hyperlipidemia, unspecified; I10 Essential (primary) hypertension; M19.90 Unspecified osteoarthritis, unspecified site; H91.90 Unspecified hearing loss, unspecified ear; H53.2 Diplopia; N42.9 Disorder of prostate, unspecified; Z79.82 Long term (current) use of aspirin; F41.9 Anxiety disorder, unspecified; I95.9 Hypotension, unspecified; E66.9 Obesity, unspecified; Z68.31 Body mass index [BMI] 31.0-31.9, adult; R47.9 Unspecified speech disturbances; Z20.822 Contact with and (suspected) exposure to COVID-19; Z79.899 Other long term (current) drug therapy; Z88.8 Allergy status to other drugs, medicaments and biological substances; Z95.0 Presence of cardiac pacemaker; Z96.653 Presence of artificial knee joint, bilateral; Z86.73 Personal history of transient ischemic attack (TIA), and cerebral infarction without residual deficits; Z87.820 Personal history of traumatic brain injury; Z87.891 Personal history of nicotine dependence; Z90.49 Acquired absence of other specified parts of digestive tract; Z82.49 Family history of ischemic heart disease and other diseases of the circulatory system; Z81.1 Family history of alcohol abuse and dependence; I25.10 Atherosclerotic heart disease of native coronary artery without angina pectoris; I44.30 Unspecified atrioventricular block
CPT/HCPCS: 96365; 96366 ×2; 93005 ×2; 96361; 99285; 36415; 94640 ×4; 94760; 85379; 83880; 80061; 80053; 83605; 83735; 84484; 85025; 85610; 85730; 87635; 71046; 72125; 71275; G0378 ×3; J0456 ×2; Q9967

== ENCOUNTER 2020-11-24 08:02 | Day surgery (SDC) | payer MEDICARE ==
[2020-11-24] MEDS ORDERED: diazePAM 5 MG TAB PO PRN (08:38)
[2020-11-24 08:51] VITALS: TEMP 97.8
[2020-11-24 10:27] VITALS: RESP 16
--- NOTE | 2020-11-24 12:28 | FL ---
PROCEDURE: FL myelogram 2 or more regions DATE: 11/24/2020 CLINICAL HISTORY: 75-year-old male COMPLICATIONS: None Total fluoroscopy time: 5 minutes 15 seconds Total images: 2 images saved SEDATION: 5 mg oral Valium administered by radiology nursing. The patient and the patient's vital signs were m onitored by qualified independent radiology personnel. TECHNIQUE: The procedure and potential risks were explained to patient and an informed consent was obtained with teach back. Site and side was verified. A time out was performed. The patient was placed prone on the fluoroscopy table and the L4-L5 level was localized and the skin was marked and was prepped and draped in the usual sterile fashion. Lidocaine was used for local anesthesia. Utilizing fluoroscopic guidance a 22-gauge spinal needle was placed through the skin and multiple attempts were made to access the subarachnoid space first at L4 -L5 and then at L3-L4. Median, paramedian, and superiorly angled approaches were attempted. A second radiologist also attempted accessing the subarachnoid space. We were unsuccessful. No contrast was administered. The estimated blood loss was minimal. The patient's condition was unchanged following the procedure. IMPRESSION: Unsuccessful lumbar myelogram injection. Multiple attempts were made to access the subarachnoid space . Different trajectories were attempted with 2 different radiologists at both L4-L5 and L3-L4.
[2020-11-24 12:32] VITALS: BP 148/67; PULSE 64
== END 2020-11-24 12:38 | disposition home or self-care (01) ==
LOC: RADPROMAIN 08:02
PROVIDERS: ATTEND Orthopaedic Surgery
DX: M54.2 Cervicalgia (principal); M54.6 Pain in thoracic spine
CPT/HCPCS: 62305